=== PATIENT | male | born 1955 | race Caucasian/White ===

== ENCOUNTER 2016-09-29 | Emergency (ER) | payer MEDICAID | END 2016-09-29 17:39 | disposition home or self-care (01) ==

== ENCOUNTER 2017-04-13 10:40 | Outpatient (CLI) | payer MEDICAID ==
[2017-04-13 19:32] LABS: BASOPHILS % (AUTO) 0.8 %; EOSINOPHILS % (AUTO) 0.3 %; HCT - HEMATOCRIT 38.9 % (42.0-52.0); LYMPHOCYTES % (AUTO) 20.9 %; MEAN CORPUSCULAR HEMOGLOBIN 31.7 pg (27.0-31.0); MEAN CORPUSCULAR HGB CONC 33.4 g/dL (32.0-36.0); MEAN PLATELET VOLUME 8.8 fL (7.4-11.4); MONOCYTES # (AUTO) 0.5 10^3/uL (0.0-1.0); MONOCYTES % (AUTO) 10.6 %; NEUTROPHILS # (AUTO) 3.4 10^3/uL (1.5-6.6); NEUTROPHILS % (AUTO) 67.4 %; RED BLOOD COUNT 4.09 10^6/uL (4.70-6.10); RED CELL DISTRIBUTION WIDTH 13.7 % (12.0-15.0)
[2017-04-13 20:02] LABS: ALBUMIN/GLOBULIN RATIO 1.4 (1.0-2.2); BILIRUBIN,TOTAL 0.3 mg/dL (0.2-1.0); BUN - BLOOD UREA NITROGEN 13 mg/dL (6-20); CALCIUM 9.3 mg/dL (8.5-10.3); CARBON DIOXIDE - CO2 25 mmol/L (21-32); CHLORIDE 100 mmol/L (101-111); CHOL/HDL RATIO 1.9 (<5.0); CHOLESTEROL 183 mg/dL; CREATININE 0.7 mg/dL (0.6-1.2); GFR - MDRD 115 (>89); GLUCOSE 101 mg/dL (70-100); HDL CHOLESTEROL 97 mg/dL; LDL/HDL RATIO 0.8 (<3.6); SODIUM 134 mmol/L (135-145); TOTAL PROTEIN 6.8 g/dL (6.7-8.2); TRIGLYCERIDES 46 mg/dL; VLDL CHOLESTEROL 9 mg/dL
== END 2017-04-13 10:41 | disposition home or self-care (01) ==
LOC: LAB.F 10:40
PROVIDERS: ATTEND Nurse Practitioner Family
DX: I10 Essential (primary) hypertension (principal); Z12.5 Encounter for screening for malignant neoplasm of prostate; R58 Hemorrhage, not elsewhere classified
CPT/HCPCS: 36415; 80053; 80061; 84153; 85025

== ENCOUNTER 2017-05-03 19:26 | Emergency (ER) | payer MEDICAID ==
[2017-05-03 19:34] VITALS: BP 115/68
--- NOTE | 2017-05-03 20:11 | ED Physician Documentation ---
History of Present Illness - Stated complaint Stated Complaint: LEFT LEG INJ - Chief complaint Chief Complaint: Ext Problem - History obtained from History obtained from: Patient - History of Present Illness Timing: Other (approximately 2 months) Pain level now: 3 Improved by: rest Worsened by: weight-bearing (intermittently, not consistently) - Additonal information Additional information: c/o approximately 2 months of left ankle pain and intermittent swelling without recollectable injury. Patient describes being quite active on a daily basis. He was evaluated by PMD 1 month ago, xrays were discussed but decision was to wait and see if symptoms resolved with rest. He says he had sudden worsening of pain and swelling 2 days ago during strenuous physical activity. Review of Systems Skin: denies: Rash Musculoskeletal: reports: Extremity pain, Extremity swelling, Pain with weight bearing Neurologic: denies: Focal weakness, Numbness PD PAST MEDICAL HISTORY - Past Medical History Past Medical History: Yes Cardiovascular: Hypertension GI: GERD - Past Surgical History Past Surgical History: Yes General: Colonoscopy - Present Medications Home Medications: Ambulatory Orders Medication Instructions Recorded Confirmed Lisinopril [Zestril] 20 mg PO DAILY 02/11/13 05/03/17 Ranitidine HCl 300 mg PO DAILY 02/11/13 05/03/17 Nortriptyline HCl 25 mg PO DAILY 01/05/15 05/03/17 Alprazolam [Xanax] 0.5 mg ORAL DAILY PRN 04/09/15 05/03/17 - Allergies Allergies/Adverse Reactions: Allergies Allergy/AdvReac Type Severity Reaction Status Date / Time tetracycline [Tetracycline] Allergy Mild Rash Verified 05/03/17 19:34 Sulfa (Sulfonamide Allergy Unknown unknown Verified 05/03/17 19:34 Antibiotics) - Social History Does the pt smoke?: Yes Smoking Status: Light tobacco smoker Does the pt drink ETOH?: Yes Does the pt have substance abuse?: Yes - Immunizations Immunizations are current?: No Immunizations: TDAP >10years/unknown - POLST Patient has POLST: No PD ED PE NORMAL - Vitals Vital signs reviewed: Yes - General General: Alert and oriented X 3, No acute distress, Well developed/nourished - Derm Derm: Normal color, Warm and dry, No rash - Extremities Extremities: No tenderness to palpate, Normal ROM s pain PD ED PE EXPANDED - Extremities Feet visual: 1 - swelling Results - Vitals Vitals: Vital Signs - 24 hr 05/03/17 19:31 Temperature 37.2 C Heart Rate 75 Respiratory 16 Rate Blood Pressure 115/68 O2 Saturation 99 Oxygen O2 Source Room air - Rads (name of study) left ankle xrays Radiology: Prelim report reviewed, See rad report PD MEDICAL DECISION MAKING - ED course Complexity details: reviewed results, re-evaluated patient, considered differential, d/w patient Departure - Departure Disposition: 01 Home, Self Care Clinical Impression: Pain of lower extremity Qualifiers: Laterality: left Qualified Code(s): M79.605 - Pain in left leg Condition: Good Instructions: ED Strain Muscle Ext Follow-Up: Evelyn Coffman, PLSQL DEVELOPER [Primary Care Provider] - (Call to arrange for next available appointment) Discharge Date/Time: 05/03/17 21:10
--- NOTE | 2017-05-03 20:50 | XRAY Preliminary Report ---
Exam: XR Ankle 3 View LT IMPRESSION: Mild soft tissue swelling. No acute fracture or dislocation identified. [facility] SITE ID: [id number]
--- NOTE | 2017-05-03 20:53 | XRAY Report ---
EXAM: LEFT ANKLE RADIOGRAPHY EXAM DATE: 05/03/2017 08:37 PM. CLINICAL HISTORY: Pain, swelling. COMPARISON: None. TECHNIQUE: 3 views. FINDINGS: Bones: No acute fracture or focal osseous destruction identified. Mild chronic calcification along th e interosseous membrane. Joints: Alignment and joint spaces appear maintained. No dislocation. Soft Tissues: No radiopaque foreign body. Soft tissue swelling. IMPRESSION: Mild soft tissue swelling. No acute fracture or dislocation identified. [facility] Referring Provider Line: [phone] SITE ID: [id number]
== END 2017-05-03 21:10 | disposition home or self-care (01) ==
LOC: ED 19:26
DX: M79.605 Pain in left leg (principal); I10 Essential (primary) hypertension; F17.200 Nicotine dependence, unspecified, uncomplicated
CPT/HCPCS: 99282; 99283

== ENCOUNTER 2017-08-18 16:47 | Outpatient (CLI) | payer MEDICAID | END 2017-08-18 16:48 | disposition home or self-care (01) | LOC: RT.S 16:47 | PROVIDERS: ATTEND Nurse Practitioner Family | DX: I49.3 Ventricular premature depolarization (principal) | CPT/HCPCS: 93005 ==

== ENCOUNTER 2017-09-04 09:04 | Outpatient (CLI) | payer MEDICAID | END 2017-09-04 09:05 | disposition home or self-care (01) | LOC: DI 09:04 | PROVIDERS: ATTEND Nurse Practitioner Family | DX: I49.3 Ventricular premature depolarization (principal); I34.0 Nonrheumatic mitral (valve) insufficiency | CPT/HCPCS: 93306 ==

== ENCOUNTER 2017-10-22 13:35 | Outpatient (CLI) | payer MEDICAID ==
[2017-10-22 14:13] LABS: BILIRUBIN,URINE NEGATIVE (NEGATIVE); GLUCOSE, URINE (UA) NEGATIVE (NEGATIVE); KETONES,URINE (UA) NEGATIVE (NEGATIVE); LEUKOCYTE ESTERASE, URINE NEGATIVE (NEGATIVE); NITRITE,URINE NEGATIVE (NEGATIVE); OCCULT BLOOD,URINE NEGATIVE (NEGATIVE); PH,URINE 7.5 PH (5.0-7.5); PROTEIN,URINE NEGATIVE (NEGATIVE); UROBILINOGEN,URINE 0.2 (NORMAL) E.U./dL (NORMAL)
[2017-10-22 14:20] LABS: CLARITY,URINE CLEAR (CLEAR)
[2017-10-22 14:23] LABS: BACTERIA,URINE None Seen /HPF (None Seen); RBC,URINE 0-5 /HPF (0-5); SQUAMOUS EPITHELIAL CELL,UR RARE Squamous (<= Few)
== END 2017-10-22 13:36 | disposition home or self-care (01) ==
LOC: LAB 13:35
PROVIDERS: ATTEND Nurse Practitioner Family
DX: R10.9 Unspecified abdominal pain (principal)
CPT/HCPCS: 81001; 87086

== ENCOUNTER 2017-10-28 13:02 | Outpatient (CLI) | payer MEDICAID ==
[2017-10-28 17:46] LABS: ALBUMIN 4.3 g/dL (3.2-5.5); ALBUMIN/GLOBULIN RATIO 1.5 (1.0-2.2); BILIRUBIN,TOTAL 0.8 mg/dL (0.2-1.0); CALCIUM 9.3 mg/dL (8.5-10.3); CREATININE 0.7 mg/dL (0.6-1.2); TOTAL PROTEIN 7.1 g/dL (6.7-8.2)
== END 2017-10-28 13:03 | disposition home or self-care (01) ==
LOC: LAB.F 13:02
PROVIDERS: ATTEND Nurse Practitioner Family
DX: R10.9 Unspecified abdominal pain (principal)
CPT/HCPCS: 36415; 80053; 82150; 83690

== ENCOUNTER 2017-11-22 07:38 | Outpatient (CLI) | payer MEDICAID ==
[2017-11-22 10:57] LABS: HB2 TOTAL 14.4 g/dL; HEMOGLOBIN A1C 0.48 g/dL; HEMOGLOBIN A1C % 5.2 % (4.6-6.2)
== END 2017-11-22 07:39 | disposition home or self-care (01) ==
LOC: LAB.F 07:38
PROVIDERS: ATTEND Nurse Practitioner Family
DX: R73.01 Impaired fasting glucose (principal)
CPT/HCPCS: 36415; 83036

== ENCOUNTER 2017-11-24 08:44 | Emergency (ER) | payer MEDICAID ==
[2017-11-24] MEDS ORDERED: ACETAMINOPHEN 1,000 MG/100 ML 100 ML IV STA (09:03)
--- NOTE | 2017-11-24 09:06 | ED Physician Documentation ---
History of Present Illness - Stated complaint Stated Complaint: FELL FROM ROOF - Additonal information Additional information: hx from pt 62 m helping a friend with tomasz project slipped on metal double pitched roof in the rain and slid all the way from the highest point off the edge flying approx 8 ft out past gutters and landed in mud on his read end no LOC denies head injiury and MARQUEZ denies neck pain denies chest pain had pain to pelvis low back and region no NV no blood in BM or urine no numbness or weakness took alleve last night s relief Review of Systems Constitutional: denies: Fever Ears: denies: Drainage/discharge Nose: denies: Epistaxis Cardiac: denies: Chest pain / pressure GI: reports: Abdominal Pain. denies: Nausea, Vomiting, Hematemesis, Bloody / black stool : denies: Hematuria Musculoskeletal: reports: Back pain. denies: Neck pain Neurologic: denies: Generalized weakness, Focal weakness, Numbness, Headache, Head injury Endocrine: denies: Easy bruising / bleeding Immunocompromised: denies: Immunocompromised PD PAST MEDICAL HISTORY - Past Medical History Cardiovascular: Hypertension GI: GERD - Past Surgical History Past Surgical History: Yes General: Colonoscopy - Present Medications Home Medications: Ambulatory Orders Medication Instructions Recorded Confirmed Lisinopril [Zestril] 20 mg PO DAILY 02/11/13 10/25/17 raNITIdine HCl [Ranitidine HCl] 300 mg PO DAILY 02/11/13 10/25/17 Nortriptyline HCl 25 mg PO DAILY 01/05/15 10/25/17 Alprazolam [Xanax] 0.5 mg ORAL DAILY PRN 04/09/15 10/25/17 - Allergies Allergies/Adverse Reactions: Allergies Allergy/AdvReac Type Severity Reaction Status Date / Time tetracycline [Tetracycline] Allergy Mild Rash Verified 05/03/17 19:34 Sulfa (Sulfonamide Allergy Unknown unknown Verified 05/03/17 19:34 Antibiotics) - Social History Does the pt smoke?: Yes Smoking Status: Light tobacco smoker Does the pt drink ETOH?: Yes Does the pt have substance abuse?: Yes - Immunizations Immunizations are current?: No Immunizations: TDAP >10years/unknown - POLST Patient has POLST: No PD ED PE NORMAL - Vitals Vital signs reviewed: Yes - General General: Alert and oriented X 3 - HEENT HEENT: Atraumatic, PERRL - Neck Neck: Supple, no meningeal sign, No bony TTP - Cardiac Cardiac: RRR - Respiratory Respiratory: No respiratory distress, Clear bilaterally, Other (no chest wall TTP) - Abdomen Abdomen: Other (non distended, no brusing, TTP lower abd with rigidity) - Male Male : Scourer present (tech Susanne - no blood, no ecchymosis, no swelling) - Back Back: Other (non focal low back TTP) - Derm Derm: Normal color - Extremities Extremities: No tenderness to palpate, Normal ROM s pain - Neuro Neuro: Alert and oriented X 3, nocturnist 2-12 intact, No motor deficit, No sensory deficit, Normal speech Eye Opening: Spontaneous Motor: Obeys Commands Verbal: Oriented GCS Score: 15 Results - Vitals Vitals: Vital Signs - 24 hr 11/24/17 11/24/17 08:58 12:04 Temperature 37.2 C Heart Rate 81 82 Respiratory 16 20 Rate Blood Pressure 142/91 H 167/88 H O2 Saturation 100 100 Oxygen O2 Source Room air - Labs Labs: Laboratory Tests 11/24/17 11/24/17 11/24/17 09:13 09:13 10:57 WBC 7.7 RBC 3.90 L Hgb 12.5 L Hct 36.7 L MCV 94.2 H MCH 32.2 H MCHC 34.2 RDW 14.4 Plt Count 181 MPV 7.5 Neut # 5.4 Lymph # 1.1 L [place] # 1.2 H Eos # 0.1 Baso # 0.0 Absolute Nucleated RBC 0.00 Nucleated RBC % 0.0 Sodium 136 Potassium 3.9 Chloride 103 Carbon Dioxide 25 Anion Gap 8.0 BUN 21 H Creatinine 0.6 Estimated GFR (MDRD) 137 Glucose 114 H Calcium 8.8 Total Bilirubin 0.9 AST 29 ALT 18 Alkaline Phosphatase 42 Total Protein 7.0 Albumin 4.4 Globulin 2.6 Albumin/Globulin Ratio 1.7 Lipase 28 Urine Color YELLOW Urine Clarity CLEAR Urine pH 5.5 Ur Specific [place] <=1.005 Urine Protein NEGATIVE Urine Glucose (UA) NEGATIVE Urine Ketones TRACE Urine Occult Blood NEGATIVE Urine Nitrite NEGATIVE Urine Bilirubin NEGATIVE Urine Urobilinogen 0.2 (NORMAL) Ur Leukocyte Esterase NEGATIVE Ur Microscopic Review NOT INDICATED Urine Culture Comments NOT INDICATED - Rads (name of study) CT angio abd pelvis Radiology: See rad report (old pelvic fx unchanged from prior imaging (and c/w pt known prior injuries) L sided pelvic hematoma 3 X 7.5 X 8.5 cm with no apparent acute extravasation on angio and no large vessel aneurysm or dissection , bladder is thick walled and there is surrounding fluid and air sugegsting a bladder injury rec further eval) L spine CT Radiology: See rad report ( no fx) Departure - Departure Disposition: 02 Transfer Acute Care Hosp Clinical Impression: Pelvic hematoma Fall from roof Qualifiers: Encounter type: initial encounter Qualified Code(s): W13.2XXA - Fall from, out of or through roof, initial encounter Bladder injury Qualifiers: Encounter type: initial encounter Qualified Code(s): S37.20XA - Unspecified injury of bladder, initial encounter Condition: Fair Discharge Date/Time: 11/24/17 12:31
[2017-11-24 09:19] LABS: BASOPHILS % (AUTO) 0.3 %; EOSINOPHILS # (AUTO) 0.1 10^3/uL (0.0-0.7); EOSINOPHILS % (AUTO) 0.7 %; HGB - HEMOGLOBIN 12.5 g/dL (14.0-18.0); LYMPHOCYTES # (AUTO) 1.1 10^3/uL (1.5-3.5); LYMPHOCYTES % (AUTO) 13.8 %; MEAN CORPUSCULAR HEMOGLOBIN 32.2 pg (27.0-31.0); MEAN CORPUSCULAR HGB CONC 34.2 g/dL (32.0-36.0); MEAN CORPUSCULAR VOLUME 94.2 fL (80.0-94.0); MEAN PLATELET VOLUME 7.5 fL (7.4-11.4); MONOCYTES # (AUTO) 1.2 10^3/uL (0.0-1.0); MONOCYTES % (AUTO) 15.4 %; NEUTROPHILS # (AUTO) 5.4 10^3/uL (1.5-6.6); NEUTROPHILS % (AUTO) 69.8 %; PLT - PLATELET COUNT 181 10^3/uL (130-450); RED CELL DISTRIBUTION WIDTH 14.4 % (12.0-15.0); WHITE BLOOD COUNT 7.7 x10^3/uL (4.8-10.8)
[2017-11-24] MEDS ORDERED: IOPAMIDOL-300 100 ML VIAL ONE (09:29)
[2017-11-24 09:31] LABS: ALBUMIN 4.4 g/dL (3.2-5.5); ALBUMIN/GLOBULIN RATIO 1.7 (1.0-2.2); BILIRUBIN,TOTAL 0.9 mg/dL (0.2-1.0); CALCIUM 8.8 mg/dL (8.5-10.3); CREATININE 0.6 mg/dL (0.6-1.2)
[2017-11-24] MEDS ORDERED: IOPAMIDOL-300 100 ML VIAL IVP ONE (09:45)
--- NOTE | 2017-11-24 10:35 | CT Report ---
EXAM: CT ANGIOGRAM ABDOMEN AND PELVIS WITH CONTRAST EXAM DATE: 11/24/2017 09:48 AM. CLINICAL HISTORY: Fall from roof, pain COMPARISONS: None. TECHNIQUE: Routine helical CT angiogram imaging was performed through the abdomen and pelvis in the a rterial phase. IV contrast: 100ML ISOVUE 300. Enteric contrast: No. Reconstructions: Coronal, sagitta l, and 3D MIP reconstructions. In accordance with CT protocol optimization, one or more of the following dose reduction techniques w ere utilized for this exam: automated exposure control, adjustment of mA and/or KV based on patient s ize, or use of iterative reconstructive technique. FINDINGS: Vasculature: No aneurysm or dissection. No contrast extravasation. Mild atherosclerotic disease of th e abdominal aorta and iliac arteries. The visualized mesenteric and solid organ vascular structures a re also within normal limits. Lung Bases: Small amount of dependent atelectasis. Abdominal Solid Organs: The liver, spleen, pancreas, adrenal glands, gallbladder and kidneys appear u nremarkable. No evidence of acute traumatic visceral injury. A few small indeterminate hypoattenuatin g liver lesions again noted within the liver. Peritoneal Cavity: No bowel obstruction. Small amount of inflammation and trace fluid within the pelv is. Tiny flecks of air appears to be present adjacent to the urinary bladder (image 169 and 176, seri es 4). No bulky adenopathy. Left-sided pelvic moderately dense collection measures approximately 3.4 x 8.4 x 7.5 cm (image 166, series 4). Pelvic Organs: Urinary bladder appears mildly thick-walled, although underdistended and limited in as sessment. A few prostate calcifications again noted. Bones: Dystrophic calcifications again noted adjacent to the pubic bone anteriorly, primarily right-s ided. These appear unchanged. The remainder of the bony pelvis also appears stable with no acute frac ture or dislocation identified. Mildly progressive degenerative changes again noted in the spine. Mil d anterolisthesis of L4 on L5 again noted. Multilevel facet arthropathy. Other: None. IMPRESSION: 1. Small amount of inflammation and trace free fluid within the pelvis. Additionally, there is a tiny margot of air adjacent to the anterior aspect of the urinary bladder and also more inferiorly a secon d small margot of free air. The urinary bladder is otherwise not well assessed secondary to incomplete distention, but appears that it may be mildly thick-walled. Recommend further evaluation of the urin shane bladder for possible injury. 2. Ovoid left-sided pelvic moderately dense collection measuring approximately 3.4 x 8.4 x 7.5 cm. In the setting of acute trauma, this likely represents a hematoma. No active arterial contrast extravas ation identified. 3. Old pelvic fracture deformities are present, including multiple fragments anterior to the pubic belinda cintia, primarily right-sided. These were visualized on the prior study. No new fracture is identified. Worsening degenerative changes within the spine. Findings discussed with Dr. Smallwood at approximately 10:25 AM on 11/24/2017. [facility] Referring Provider Line: [phone] SITE ID: [id number]
--- NOTE | 2017-11-24 10:40 | CT Preliminary Report ---
Exam: CT LUMBAR SPINE W/O IMPRESSION: 1. No acute lumbar spine fracture. 2. Increased degenerative disk disease and facet arthropathy within the visualized spine since the pr ior study, including mild grade 1 retrolisthesis of L1 on L2 and anterolisthesis of L4 on L5. [facility] SITE ID: [id number]
--- NOTE | 2017-11-24 10:40 | CT Report ---
EXAM: CT LUMBAR SPINE WITHOUT CONTRAST EXAM DATE: 11/24/2017 09:34 AM. CLINICAL HISTORY: Fall from roof, pain COMPARISONS: CT abdomen pelvis 04/09/2015. TECHNIQUE: Thin-section axial images were acquired of the lumbar spine from T12 to S1 without contras t. Post-processing: Coronal and sagittal reformats. Other: None. In accordance with CT protocol optimization, one or more of the following dose reduction techniques w ere utilized for this exam: automated exposure control, adjustment of mA and/or KV based on patient s ize, or use of iterative reconstructive technique. FINDINGS: Alignment: Mild grade 1 retrolisthesis of L1 on L2 again noted. Mild grade 1 anterolisthesis of L4 on L5 again noted. Multilevel degenerative change, most notably at the visualized lower thoracic spine, and L5-S1 where there is loss of disk space, endplate sclerosis, and osteophytes. Multilevel facet a rthropathy again noted throughout the lumbar spine, most prominent at the lower lumbar spine.. Bones: Vertebral body heights appear stable. No acute fracture. Disk Levels/Facets: Multilevel degenerative change, most notably at the visualized lower thoracic spine and L5-S1 where t here is loss of disk space, endplate sclerosis, and osteophytes. Multilevel facet arthropathy again n oted throughout the lumbar spine, most prominent at the lower lumbar spine. Musculature: No fatty atrophy. Other: The visualized retroperitoneum is unremarkable. IMPRESSION: 1. No acute lumbar spine fracture. 2. Increased degenerative disk disease and facet arthropathy within the visualized spine since the pr ior study, including mild grade 1 retrolisthesis of L1 on L2 and anterolisthesis of L4 on L5. [facility] Referring Provider Line: [phone] SITE ID: [id number]
[2017-11-24 11:06] LABS: BILIRUBIN,URINE NEGATIVE (NEGATIVE); GLUCOSE, URINE (UA) NEGATIVE (NEGATIVE); KETONES,URINE (UA) TRACE mg/dL (NEGATIVE); LEUKOCYTE ESTERASE, URINE NEGATIVE (NEGATIVE); NITRITE,URINE NEGATIVE (NEGATIVE); OCCULT BLOOD,URINE NEGATIVE (NEGATIVE); PH,URINE 5.5 PH (5.0-7.5); PROTEIN,URINE NEGATIVE (NEGATIVE); UROBILINOGEN,URINE 0.2 (NORMAL) E.U./dL (NORMAL)
[2017-11-24 11:07] LABS: CLARITY,URINE CLEAR (CLEAR)
[2017-11-24] MEDS ORDERED: MORPHINE 2 MG/ML SYRINGE IVP STA (11:39)
[2017-11-24] MEDS ORDERED: LIDOCAINE 2% URO-JET 5 ML SYRINGE UR STA (11:39)
[2017-11-24 12:05] VITALS: BP 167/88
[2017-11-24] MEDS ORDERED: LORazepam 2 MG/ML VIAL IVP STA (12:12)
== END 2017-11-24 12:31 | disposition short-term general hospital (02) ==
LOC: ED 08:44
DX: S30.0XXA Contusion of lower back and pelvis, initial encounter (principal); S37.20XA Unspecified injury of bladder, initial encounter; W13.2XXA Fall from, out of or through roof, initial encounter; I10 Essential (primary) hypertension; K21.9 Gastro-esophageal reflux disease without esophagitis; F17.200 Nicotine dependence, unspecified, uncomplicated
CPT/HCPCS: 36415; 51702; 72131; 74174; 80053; 81003; 83690; 85025; 96365; 96375; 99284; J0131; J2060; J2270; Q9967; 81001; 87086

== ENCOUNTER 2017-11-24 12:21 | Outpatient (CLI) | payer MEDICAID | END 2017-11-24 12:22 | disposition short-term general hospital (02) | LOC: EMS 12:21 | PROVIDERS: ATTEND Surgery | DX: S37.20XA Unspecified injury of bladder, initial encounter (principal); S30.0XXA Contusion of lower back and pelvis, initial encounter; W17.89XA Other fall from one level to another, initial encounter | CPT/HCPCS: A0425; A0426 ==

== ENCOUNTER 2017-11-28 11:08 | Emergency (ER) | payer MEDICAID ==
[2017-11-28 11:16] VITALS: BP 165/85
[2017-11-28 12:22] LABS: BILIRUBIN,URINE NEGATIVE (NEGATIVE); GLUCOSE, URINE (UA) NEGATIVE (NEGATIVE); KETONES,URINE (UA) NEGATIVE (NEGATIVE); LEUKOCYTE ESTERASE, URINE NEGATIVE (NEGATIVE); NITRITE,URINE NEGATIVE (NEGATIVE); OCCULT BLOOD,URINE NEGATIVE (NEGATIVE); PROTEIN,URINE NEGATIVE (NEGATIVE); UROBILINOGEN,URINE 0.2 (NORMAL) E.U./dL (NORMAL)
[2017-11-28 12:23] LABS: CLARITY,URINE CLEAR (CLEAR)
[2017-11-28 12:25] LABS: BASOPHILS % (AUTO) 0.5 %; EOSINOPHILS % (AUTO) 0.5 %; HGB - HEMOGLOBIN 12.4 g/dL (14.0-18.0); LYMPHOCYTES # (AUTO) 1.1 10^3/uL (1.5-3.5); MEAN CORPUSCULAR HGB CONC 33.7 g/dL (32.0-36.0); MEAN CORPUSCULAR VOLUME 94.9 fL (80.0-94.0); MEAN PLATELET VOLUME 8.4 fL (7.4-11.4); MONOCYTES # (AUTO) 0.7 10^3/uL (0.0-1.0); MONOCYTES % (AUTO) 10.7 %; NEUTROPHILS % (AUTO) 72.3 %; PLT - PLATELET COUNT 213 10^3/uL (130-450); RED BLOOD COUNT 3.89 10^6/uL (4.70-6.10); RED CELL DISTRIBUTION WIDTH 13.7 % (12.0-15.0); WHITE BLOOD COUNT 6.9 x10^3/uL (4.8-10.8)
[2017-11-28 12:39] LABS: ALBUMIN 4.4 g/dL (3.2-5.5); ALBUMIN/GLOBULIN RATIO 1.5 (1.0-2.2); BILIRUBIN,TOTAL 0.5 mg/dL (0.2-1.0); CALCIUM 9.2 mg/dL (8.5-10.3); CREATININE 0.8 mg/dL (0.6-1.2); TOTAL PROTEIN 7.4 g/dL (6.7-8.2)
[2017-11-28] MEDS ORDERED: HYDROcod/ACETAM 5/325 MG TABLET PO STA (12:42)
--- NOTE | 2017-11-28 12:44 | ED Physician Documentation ---
History of Present Illness - Stated complaint Stated Complaint: LOW ABD PX - Chief complaint Chief Complaint: Abd Pain - History obtained from History obtained from: Patient, Family - History of Present Illness Timing: How many days ago (4) Pain level max: 7 Pain level now: 4 Improved by: continued movement throughout the day. Worsened by: movement, waking up in the am - Additonal information Additional information: Patient is a 62-year-old male who presents to the emergency department complaining of pain since falling off of a roof approximately 4 days ago. Was sent down to [facility] per possible intra-pelvic bleeding as well as bladder injury. States he had several CAT scans in the emergency department there and was seen by multiple people and sent home. States since that time he feels very sore in the morning, better after he is up and moving around for a while. Is taking Advil and Tylenol at home. No fevers. No syncope. No lightheadedness. Review of Systems Constitutional: denies: Fever, Chills GI: denies: Vomiting : denies: Dysuria, Frequency, Hesitancy, Hematuria Skin: denies: Rash Musculoskeletal: denies: Neck pain, Back pain Neurologic: denies: Headache PD PAST MEDICAL HISTORY - Past Medical History Cardiovascular: Hypertension GI: GERD - Past Surgical History Past Surgical History: Yes General: Colonoscopy - Present Medications Home Medications: Ambulatory Orders Medication Instructions Recorded Confirmed Lisinopril [Zestril] 20 mg PO DAILY 02/11/13 10/25/17 raNITIdine HCl [Ranitidine HCl] 300 mg PO DAILY 02/11/13 10/25/17 Nortriptyline HCl 25 mg PO DAILY 01/05/15 10/25/17 Alprazolam [Xanax] 0.5 mg ORAL DAILY PRN 04/09/15 10/25/17 Hydrocodone/Acetaminophen 1 - 2 each PO Q6H PRN #14 tablet 11/28/17 [Hydrocodon-Acetaminophen 5-325] - Allergies Allergies/Adverse Reactions: Allergies Allergy/AdvReac Type Severity Reaction Status Date / Time tetracycline [Tetracycline] Allergy Mild Rash Verified 05/03/17 19:34 Sulfa (Sulfonamide Allergy Unknown unknown Verified 05/03/17 19:34 Antibiotics) - Social History Does the pt smoke?: Yes Smoking Status: Current every day smoker Does the pt drink ETOH?: Yes Does the pt have substance abuse?: Yes - Immunizations Immunizations are current?: No Immunizations: TDAP >10years/unknown - POLST Patient has POLST: No PD ED PE NORMAL - Vitals Vital signs reviewed: Yes - General General: Alert and oriented X 3, No acute distress - HEENT HEENT: Moist mucous membranes - Neck Neck: Supple, no meningeal sign - Cardiac Cardiac: RRR, Strong equal pulses - Respiratory Respiratory: No respiratory distress, Clear bilaterally - Abdomen Abdomen: Soft, Non tender, Non distended - Male Male : Other (normal external exam.) - Back Back: No CVA TTP, No spinal TTP - Derm Derm: Warm and dry, No rash - Neuro Neuro: Alert and oriented X 3 - Psych Psych: Normal mood, Normal affect Results - Vitals Vitals: Vital Signs - 24 hr 11/28/17 11:11 Temperature 36.6 C Heart Rate 77 Respiratory 18 Rate Blood Pressure 165/85 H O2 Saturation 99 Oxygen O2 Source Room air - Labs Labs: Laboratory Tests 11/28/17 11/28/17 11/28/17 12:00 12:13 12:13 WBC 6.9 RBC 3.89 L Hgb 12.4 L Hct 36.9 L MCV 94.9 H MCH 32.0 H MCHC 33.7 RDW 13.7 Plt Count 213 MPV 8.4 Neut # 5.0 Lymph # 1.1 L [place] # 0.7 Eos # 0.0 Baso # 0.0 Absolute Nucleated RBC 0.00 Nucleated RBC % 0.0 Sodium 135 Potassium 4.8 Chloride 100 L Carbon Dioxide 27 Anion Gap 8.0 BUN 22 H Creatinine 0.8 Estimated GFR (MDRD) 98 Glucose 96 Calcium 9.2 Total Bilirubin 0.5 AST 22 ALT 17 Alkaline Phosphatase 48 Total Protein 7.4 Albumin 4.4 Globulin 3.0 Albumin/Globulin Ratio 1.5 Lipase 64 H Urine Color YELLOW Urine Clarity CLEAR Urine pH 6.0 Ur Specific [place] <=1.005 Urine Protein NEGATIVE Urine Glucose (UA) NEGATIVE Urine Ketones NEGATIVE Urine Occult Blood NEGATIVE Urine Nitrite NEGATIVE Urine Bilirubin NEGATIVE Urine Urobilinogen 0.2 (NORMAL) Ur Leukocyte Esterase NEGATIVE Ur Microscopic Review NOT INDICATED Urine Culture Comments NOT INDICATED PD MEDICAL DECISION MAKING - ED course Complexity details: reviewed old records, reviewed results, re-evaluated patient , considered differential, d/w patient, d/w family ED course: Patient is a 62-year-old gentleman who presents to the emergency department with continued low back/pelvic pain after a follow-up of a roof 4 days ago. Worse in the morning, better as he gets up and moves around throughout the day. Appears musculoskeletal on exam. I reviewed his prior CT scans and records from his prior ED visit. I also discussed with the [facility] his records there and those were reviewed over the phone. His abdomen is soft, nontender nondistended here. Hemoglobin and hematocrit are stable. Normal vital signs. Doubt he has continued bleeding. His pain is greatly improved with a small amount of pain medication. Suspect that this is likely musculoskeletal pain from the fall itself. We did discuss a repeat CT scan but patient does not want this at this time. Girlfiriend is comfortable monitoring him at home. Patient counseled regarding signs and symptoms for which I believe and urgent re-evaluation would be necessary. Patient with good understanding of and agreement to plan and is comfortable going home at this time This document was made in part using voice recognition software. While efforts are made to proofread this document, sound alike and grammatical errors may occur. Departure - Departure Disposition: 01 Home, Self Care Clinical Impression: Abdominal wall strain Qualifiers: Encounter type: initial encounter Qualified Code(s): S39.011A - Strain of muscle, fascia and tendon of abdomen, initial encounter Condition: Good Instructions: ED Strain Abdominal Muscle Follow-Up: Evelyn Coffman ARNP [Primary Care Provider] - Within 1 week Prescriptions: Hydrocodone/Acetaminophen [Hydrocodon-Acetaminophen 5-325] 1 - 2 each PO Q6H PRN #14 tablet PRN Reason: pain Comments: This should improve over the next few days. Return if you worsen. Do not drink alcohol or drive while on narcotic pain medicine. Note that many narcotic pain relievers also contain tylenol/acetaminophen. Please ensure that your total dose of acetaminophen from all sources does not exceed 3 grams (3000mg) per day. You may constipated on this medication, take a stool softener such as "Colace" twice a day while you are on it. Also recommend a pgot-aud-adbimee laxative such as senna or MiraLAX any day that you do not have a bowel movement. If you received narcotic pain medication in the emergency department, do not drive or operate machinery for the next 24 hours. Discharge Date/Time: 11/28/17 13:15
== END 2017-11-28 13:15 | disposition home or self-care (01) ==
LOC: ED 11:08
DX: S39.011A Strain of muscle, fascia and tendon of abdomen, initial encounter (principal); W13.2XXA Fall from, out of or through roof, initial encounter; I10 Essential (primary) hypertension; K21.9 Gastro-esophageal reflux disease without esophagitis; F17.200 Nicotine dependence, unspecified, uncomplicated
CPT/HCPCS: 36415; 80053; 81003; 83690; 85025; 99283; A9270; 81001; 87086

== ENCOUNTER 2018-01-20 07:35 | Outpatient (CLI) | payer MEDICAID ==
[2018-01-20 11:31] LABS: HB2 TOTAL 15.8 g/dL; HEMOGLOBIN A1C 0.48 g/dL; HEMOGLOBIN A1C % 4.9 % (4.6-6.2)
== END 2018-01-20 07:36 | disposition home or self-care (01) ==
LOC: LAB.F 07:35
PROVIDERS: ATTEND Nurse Practitioner Family
DX: R73.9 Hyperglycemia, unspecified (principal)
CPT/HCPCS: 36415; 83036

== ENCOUNTER 2018-12-05 11:56 | Emergency (ER) | payer MEDICAID ==
[2018-12-05 12:52] LABS: BASOPHILS % (AUTO) 0.6 %; EOSINOPHILS % (AUTO) 0.2 %; HGB - HEMOGLOBIN 12.8 g/dL (14.0-18.0); LYMPHOCYTES # (AUTO) 1.1 10^3/uL (1.5-3.5); LYMPHOCYTES % (AUTO) 18.5 %; MEAN CORPUSCULAR HEMOGLOBIN 31.9 pg (27.0-31.0); MEAN CORPUSCULAR HGB CONC 33.7 g/dL (32.0-36.0); MEAN CORPUSCULAR VOLUME 94.7 fL (80.0-94.0); MEAN PLATELET VOLUME 7.7 fL (7.4-11.4); MONOCYTES # (AUTO) 0.6 10^3/uL (0.0-1.0); MONOCYTES % (AUTO) 11.2 %; NEUTROPHILS % (AUTO) 69.5 %; PLT - PLATELET COUNT 253 10^3/uL (130-450); RED BLOOD COUNT 4.01 10^6/uL (4.70-6.10); RED CELL DISTRIBUTION WIDTH 14.2 % (12.0-15.0); WHITE BLOOD COUNT 5.8 x10^3/uL (4.8-10.8)
[2018-12-05 13:06] LABS: ALBUMIN 4.3 g/dL (3.2-5.5); ALBUMIN/GLOBULIN RATIO 1.4 (1.0-2.2); BILIRUBIN,TOTAL 0.5 mg/dL (0.2-1.0); CALCIUM 9.2 mg/dL (8.5-10.3); CREATININE 0.8 mg/dL (0.6-1.2); TOTAL PROTEIN 7.3 g/dL (6.7-8.2)
--- NOTE | 2018-12-05 14:00 | ED Physician Documentation ---
PD HPI ABD PAIN - Stated complaint Stated Complaint: LOWER ABD PAIN - Chief complaint Chief Complaint: Abd Pain - History obtained from History obtained from: Patient - History of Present Illness Timing - onset: How many days ago (2-3) Timing - duration: Days Timing - details: Gradual onset, Waxing and waning Quality: Cramping, Aching, Pain Location: Periumbilical, Other (lower abd) Radiation: No: Chest, Lower back Improved by: BM. No: Eating Worsened by: Position. No: Eating, Palpation Associated symptoms: Nausea, Constipation. No: Fever, Vomiting, Diarrhea, Melena, Hematochezia Similar symptoms before: No diagnosis (has had CT scans, endoscopies without specific Dx.) Recently seen: Emergency Dept Review of Systems Constitutional: denies: Fever, Chills, Myalgias Nose: denies: Rhinorrhea / runny nose, Congestion Throat: denies: Sore throat Respiratory: denies: Cough GI: reports: Abdominal Pain, Constipation. denies: Vomiting, Diarrhea, Hematemesis, Bloody / black stool : denies: Dysuria, Frequency Skin: denies: Rash, Lesions Musculoskeletal: denies: Back pain Neurologic: reports: Generalized weakness. denies: Focal weakness, Numbness, Near syncope PD PAST MEDICAL HISTORY - Past Medical History Cardiovascular: Hypertension GI: GERD - Past Surgical History Past Surgical History: Yes General: Colonoscopy - Present Medications Home Medications: Ambulatory Orders Medication Instructions Recorded Confirmed Lisinopril [Zestril] 30 mg PO DAILY 02/11/13 07/25/18 RX: raNITIdine HCl [Ranitidine HCl] 300 mg PO DAILY 02/11/13 07/25/18 Alprazolam [Xanax] 0.5 mg ORAL DAILY PRN 04/09/15 07/25/18 RX: Nortriptyline HCl 100 mg PO DAILY 07/25/18 07/25/18 Dicyclomine [Bentyl] 10 mg PO BID PRN #30 capsule 12/05/18 Polyethylene Glycol 3350 [Miralax] 17 gm PO DAILY PRN #1 bottle 12/05/18 RX: Naproxen 500 mg PO QPM #20 tablet 12/05/18 - Allergies Allergies/Adverse Reactions: Allergies Allergy/AdvReac Type Severity Reaction Status Date / Time tetracycline [Tetracycline] Allergy Mild Rash Verified 07/25/18 13:15 Sulfa (Sulfonamide Allergy Unknown unknown Verified 07/25/18 13:15 Antibiotics) - Social History Does the pt smoke?: Yes Smoking Status: Current every day smoker Does the pt drink ETOH?: Yes Does the pt have substance abuse?: Yes - Immunizations Immunizations are current?: No Immunizations: TDAP >10years/unknown - POLST Patient has POLST: No PD ED PE NORMAL - Vitals Vital signs reviewed: Yes - General General: Alert and oriented X 3, No acute distress, Well developed/nourished - HEENT HEENT: Atraumatic, PERRL, Pharynx benign - Neck Neck: Supple, no meningeal sign, No adenopathy - Cardiac Cardiac: RRR, No murmur - Respiratory Respiratory: No respiratory distress, Clear bilaterally - Abdomen Abdomen: Normal bowel sounds, Soft, Non distended, No organomegaly, Other (tender mid to lower abd without percussion, rebound, nor guarding. ) - Male Male : Deferred - Rectal Rectal: Deferred - Back Back: No CVA TTP - Derm Derm: Normal color, Warm and dry - Extremities Extremities: Normal ROM s pain, No edema, No calf tenderness / cord - Neuro Neuro: Alert and oriented X 3, No motor deficit, Normal speech Results - Vitals Vitals: Vital Signs - 24 hr 12/05/18 12/05/18 12/05/18 12:11 14:38 15:41 Temperature 36.7 C Heart Rate 85 87 77 Respiratory 18 18 16 Rate Blood Pressure 162/76 H 162/86 H 170/82 H O2 Saturation 99 99 95 Oxygen O2 Source Room air - Labs Labs: Laboratory Tests 12/05/18 12/05/18 12/05/18 12:42 12:42 14:20 WBC 5.8 RBC 4.01 L Hgb 12.8 L Hct 38.0 L MCV 94.7 H MCH 31.9 H MCHC 33.7 RDW 14.2 Plt Count 253 MPV 7.7 Neut # (Auto) 4.0 Lymph # (Auto) 1.1 L [place] # (Auto) 0.6 Eos # (Auto) 0.0 Baso # (Auto) 0.0 Absolute Nucleated RBC 0.00 Nucleated RBC % 0.0 Sodium 136 Potassium 3.8 Chloride 99 L Carbon Dioxide 26 Anion Gap 11.0 BUN 19 Creatinine 0.8 Estimated GFR (MDRD) 98 Glucose 88 Calcium 9.2 Total Bilirubin 0.5 AST 34 ALT 25 Alkaline Phosphatase 40 L Total Protein 7.3 Albumin 4.3 Globulin 3.0 Albumin/Globulin Ratio 1.4 Lipase 39 Urine Color YELLOW Urine Clarity CLEAR Urine pH 6.5 Ur Specific [place] <=1.005 Urine Protein NEGATIVE Urine Glucose (UA) NEGATIVE Urine Ketones TRACE Urine Occult Blood NEGATIVE Urine Nitrite NEGATIVE Urine Bilirubin NEGATIVE Urine Urobilinogen 0.2 (NORMAL) Ur Leukocyte Esterase NEGATIVE Ur Microscopic Review NOT INDICATED Urine Culture Comments NOT INDICATED PD MEDICAL DECISION MAKING - ED course Complexity details: considered differential (he has had prior CTs recently and lower endoscopy 5-6 months ago. Abd exam is not acute abd. We shared discussion for meds and labs without imaging. ), d/w patient Departure - Departure Disposition: Home, Self Care Clinical Impression: Abdominal pain Qualifiers: Abdominal location: lower abdomen, unspecified Qualified Code(s): R10.30 - Low er abdominal pain, unspecified Condition: Stable Record reviewed to determine appropriate education?: Yes Instructions: ED Abdominal Pain Unkn Cause Prescriptions: Dicyclomine [Bentyl] 10 mg PO BID PRN #30 capsule PRN Reason: Abdominal Pain RX: Naproxen 500 mg PO QPM #20 tablet Polyethylene Glycol 3350 [Miralax] 17 gm PO DAILY PRN #1 bottle PRN Reason: Constipation Comments: Stay well-hydrated. Continue your daily fiber use. Add MiraLAX mild stool softener daily. Also naproxen anti-inflammatory nightly. To that add dicyclomine intestinal antispasmodic as needed for cramps. Recheck if not improved well over the next week or so. Follow-up with your primary care regarding this combination and see if it is helping or not or other treatments to try. Discharge Date/Time: 12/05/18 15:43
[2018-12-05 14:40] LABS: BILIRUBIN,URINE NEGATIVE (NEGATIVE); GLUCOSE, URINE (UA) NEGATIVE (NEGATIVE); KETONES,URINE (UA) TRACE mg/dL (NEGATIVE); LEUKOCYTE ESTERASE, URINE NEGATIVE (NEGATIVE); NITRITE,URINE NEGATIVE (NEGATIVE); OCCULT BLOOD,URINE NEGATIVE (NEGATIVE); PH,URINE 6.5 PH (5.0-7.5); PROTEIN,URINE NEGATIVE (NEGATIVE); UROBILINOGEN,URINE 0.2 (NORMAL) E.U./dL (NORMAL)
[2018-12-05 14:42] LABS: CLARITY,URINE CLEAR (CLEAR)
[2018-12-05 15:43] VITALS: BP 170/82
== END 2018-12-05 15:43 | disposition home or self-care (01) ==
LOC: ED 11:56
DX: R10.33 Periumbilical pain (principal); R11.0 Nausea; K59.00 Constipation, unspecified; K21.9 Gastro-esophageal reflux disease without esophagitis; I10 Essential (primary) hypertension; F17.200 Nicotine dependence, unspecified, uncomplicated
CPT/HCPCS: 36415; 80053; 81001; 81003; 83690; 85025; 87086; 99282; 99283

== ENCOUNTER 2018-12-19 07:20 | Outpatient (CLI) | payer MEDICAID ==
[2018-12-19 10:44] LABS: BASOPHILS % (AUTO) 0.6 %; EOSINOPHILS # (AUTO) 0.1 10^3/uL (0.0-0.7); EOSINOPHILS % (AUTO) 2.4 %; HGB - HEMOGLOBIN 13.3 g/dL (14.0-18.0); LYMPHOCYTES % (AUTO) 23.1 %; MEAN CORPUSCULAR HEMOGLOBIN 32.1 pg (27.0-31.0); MEAN CORPUSCULAR HGB CONC 33.5 g/dL (32.0-36.0); MEAN CORPUSCULAR VOLUME 95.8 fL (80.0-94.0); MEAN PLATELET VOLUME 8.9 fL (7.4-11.4); MONOCYTES # (AUTO) 0.5 10^3/uL (0.0-1.0); MONOCYTES % (AUTO) 11.3 %; NEUTROPHILS # (AUTO) 2.7 10^3/uL (1.5-6.6); NEUTROPHILS % (AUTO) 62.6 %; PLT - PLATELET COUNT 219 10^3/uL (130-450); RED BLOOD COUNT 4.16 10^6/uL (4.70-6.10); RED CELL DISTRIBUTION WIDTH 14.5 % (12.0-15.0); WHITE BLOOD COUNT 4.4 x10^3/uL (4.8-10.8)
[2018-12-19 10:45] LABS: HB2 TOTAL 14.1 g/dL; HEMOGLOBIN A1C 0.45 g/dL; HEMOGLOBIN A1C % 5.1 % (4.6-6.2)
[2018-12-19 10:58] LABS: ALBUMIN 4.3 g/dL (3.2-5.5); ALBUMIN/GLOBULIN RATIO 1.5 (1.0-2.2); ALKALINE PHOSPHATASE 41 IU/L (42-121); ALT ALANINE AMINOTRANSFERASE 29 IU/L (10-60); AST ASPARTATE AMINOTRANSFERASE 30 IU/L (10-42); BILIRUBIN,TOTAL 0.9 mg/dL (0.2-1.0); BUN - BLOOD UREA NITROGEN 16 mg/dL (6-20); CALCIUM 9.1 mg/dL (8.5-10.3); CARBON DIOXIDE - CO2 28 mmol/L (21-32); CHLORIDE 98 mmol/L (101-111); CHOL/HDL RATIO 1.9 (<5.0); CHOLESTEROL 200 mg/dL; CREATININE 0.8 mg/dL (0.6-1.2); GFR - MDRD 98 (>89); GLUCOSE 90 mg/dL (70-100); HDL CHOLESTEROL 108 mg/dL; SODIUM 134 mmol/L (135-145); TOTAL PROTEIN 7.1 g/dL (6.7-8.2)
[2018-12-19 11:19] LABS: LDL CHOLESTEROL,DIRECT 101 mg/dL; LDLD/HDL RATIO 0.9 (<3.6)
== END 2018-12-19 07:21 | disposition home or self-care (01) ==
LOC: LAB.F 07:20
PROVIDERS: ATTEND Nurse Practitioner Family
DX: I10 Essential (primary) hypertension (principal); Z13.220 Encounter for screening for lipoid disorders; Z13.1 Encounter for screening for diabetes mellitus; Z12.5 Encounter for screening for malignant neoplasm of prostate
CPT/HCPCS: 36415; 80050; 80061; 83036; 83721; 84153

== ENCOUNTER 2019-10-09 10:26 | Outpatient (CLI) | payer MEDICAID ==
[2019-10-09 17:15] LABS: BASOPHILS % (AUTO) 0.4 %; EOSINOPHILS % (AUTO) 0.3 %; HGB - HEMOGLOBIN 11.6 g/dL (14.0-18.0); LYMPHOCYTES # (AUTO) 0.9 10^3/uL (1.5-3.5); LYMPHOCYTES % (AUTO) 13.3 %; MEAN CORPUSCULAR HGB CONC 33.1 g/dL (32.0-36.0); MEAN CORPUSCULAR VOLUME 96.4 fL (80.0-94.0); MEAN PLATELET VOLUME 10.5 fL (7.4-11.4); MONOCYTES # (AUTO) 0.7 10^3/uL (0.0-1.0); MONOCYTES % (AUTO) 10.6 %; NEUTROPHILS # (AUTO) 5.2 10^3/uL (1.5-6.6); PLT - PLATELET COUNT 229 10^3/uL (130-450); RED BLOOD COUNT 3.63 10^6/uL (4.70-6.10); RED CELL DISTRIBUTION WIDTH 14.5 % (12.0-15.0)
== END 2019-10-09 10:27 | disposition home or self-care (01) ==
LOC: LAB.S 10:26
PROVIDERS: ATTEND Physician Assistant
DX: D53.9 Nutritional anemia, unspecified (principal)
CPT/HCPCS: 36415; 85025

== ENCOUNTER 2020-02-24 06:50 | Emergency (ER) | payer MEDICAID ==
--- NOTE | 2020-02-24 07:05 | ED Physician Documentation ---
PD HPI ABD PAIN - Stated complaint Stated Complaint: ABD PX - Chief complaint Chief Complaint: Abd Pain - History obtained from History obtained from: Patient - History of Present Illness Timing - onset: How many weeks ago (2), Chronic (he claims some degree of stomach discomfort much of the time.) Timing - details: Gradual onset, Still present, Waxing and waning Quality: Cramping, Aching, Pain Location: Epigastric, Periumbilical Radiation: No: Chest, Lower back, Upper back Improved by: No: Eating Worsened by: Eating. No: Breathing, Palpation Associated symptoms: Nausea. No: Fever, Vomiting, Diarrhea, Constipation, Candido na, Hematochezia Similar symptoms before: No diagnosis (He states he has fairly regular upper abdominal discomfort and lack of appetite for at least a year or so. He has had episodic worsening pain associated with some nausea. He has had previous CT scans as well as upper and lower endoscopies without any firm diagnosis.) Recently seen: [facility] (He talked with his provider at [facility] who is planning an outpatient CT scan in the next week or 2) Review of Systems Constitutional: denies: Fever, Chills Nose: denies: Rhinorrhea / runny nose, Congestion Throat: denies: Sore throat Respiratory: denies: Cough GI: reports: Abdominal Pain, Nausea. denies: Vomiting, Constipation, Diarrhea, Bloody / black stool : denies: Dysuria, Frequency Musculoskeletal: denies: Neck pain, Back pain Neurologic: reports: Generalized weakness. denies: Focal weakness, Numbness, Near syncope PD PAST MEDICAL HISTORY - Past Medical History Cardiovascular: Hypertension GI: GERD, Other (IBS) : None Psych: Depression Musculoskeletal: Osteoarthritis - Past Surgical History Past Surgical History: Yes General: Hiatal hernia repair, Colonoscopy - Present Medications Home Medications: Ambulatory Orders Medication Instructions Recorded Confirmed lisinopriL [Zestril] 40 mg PO DAILY 02/11/13 02/05/20 Alprazolam [Xanax] 0.5 mg ORAL DAILY PRN 04/09/15 02/05/20 Nortriptyline HCl 50 mg PO BID 07/25/18 02/05/20 Digestive 8/L.acidoph/Pectin 1 each PO BID #60 tablet 02/24/20 [Digestive Enzymes Tablet] Famotidine 20 mg PO DAILY #30 tablet 07/18/20 Hydrocodone/Acetaminophen [[place] 1 each PO Q6H PRN #20 tablet 02/24/20 5-325 Tablet] Ondansetron Odt [Zofran] 4 mg TL Q6H PRN #20 tablet 02/24/20 Saccharomyces Boulardii [Florastor] 250 mg PO BID #60 capsule 02/24/20 - Allergies Allergies/Adverse Reactions: Allergies Allergy/AdvReac Type Severity Reaction Status Date / Time tetracycline [Tetracycline] Allergy Mild Rash Verified 02/24/20 07:00 Sulfa (Sulfonamide Allergy Unknown unknown Verified 02/24/20 07:00 Antibiotics) - Social History Does the pt smoke?: Yes Smoking Status: Former smoker Does the pt drink ETOH?: Yes Does the pt have substance abuse?: Yes - Immunizations Immunizations are current?: No Immunizations: TDAP >10years/unknown - POLST Patient has POLST: No PD ED PE NORMAL - Vitals Vital signs reviewed: Yes - General General: Alert and oriented X 3, No acute distress, Well developed/nourished - HEENT HEENT: Moist mucous membranes, Pharynx benign - Neck Neck: Supple, no meningeal sign, No adenopathy - Cardiac Cardiac: RRR, No murmur - Respiratory Respiratory: Clear bilaterally - Abdomen Abdomen: Normal bowel sounds, Soft, Non distended, No organomegaly, Other (tender epigastric and mid abd without guarding nor percussion tenderness. ) - Male Male : Deferred - Rectal Rectal: Deferred - Back Back: No CVA TTP - Derm Derm: Normal color, Warm and dry - Neuro Neuro: Alert and oriented X 3, No motor deficit, Normal speech Results - Vitals Vitals: Vital Signs - 24 hr 02/24/20 02/24/20 02/24/20 06:50 07:21 09:00 Temperature 36.2 C L 36.7 C Heart Rate 103 H 89 85 Respiratory 18 16 16 Rate Blood Pressure 145/82 H 133/91 H 125/71 O2 Saturation 99 99 99 02/24/20 02/24/20 10:03 10:47 Temperature 36.7 C Heart Rate 77 75 Respiratory 16 16 Rate Blood Pressure 125/64 128/68 O2 Saturation 97 99 Oxygen O2 Source Room air - Labs Labs: Laboratory Tests 02/24/20 02/24/20 02/24/20 07:35 07:35 07:35 WBC 4.4 L RBC 3.96 L Hgb 13.0 L Hct 37.6 L MCV 94.9 H MCH 32.8 H MCHC 34.6 RDW 14.3 Plt Count 244 MPV 10.3 Neut # (Auto) 3.2 Lymph # (Auto) 0.6 L [place] # (Auto) 0.5 Eos # (Auto) 0.0 Baso # (Auto) 0.0 Absolute Nucleated RBC 0.00 Nucleated RBC % 0.0 ESR 7 Sodium 133 L Potassium 4.0 Chloride 100 L Carbon Dioxide 22 Anion Gap 11.0 BUN 11 Creatinine 0.7 Estimated GFR (MDRD) 114 Glucose 106 H Calcium 9.3 Magnesium 2.0 Total Bilirubin 1.1 H AST 31 ALT 28 Alkaline Phosphatase 42 Total Protein 7.4 Albumin 4.4 Globulin 3.0 Albumin/Globulin Ratio 1.5 Lipase 39 Urine Color Urine Clarity Urine pH Ur Specific [place] Urine Protein Urine Glucose (UA) Urine Ketones Urine Occult Blood Urine Nitrite Urine Bilirubin Urine Urobilinogen Ur Leukocyte Esterase Ur Microscopic Review Urine Culture Comments 02/24/20 08:50 WBC RBC Hgb Hct MCV MCH MCHC RDW Plt Count MPV Neut # (Auto) Lymph # (Auto) [place] # (Auto) Eos # (Auto) Baso # (Auto) Absolute Nucleated RBC Nucleated RBC % ESR Sodium Potassium Chloride Carbon Dioxide Anion Gap BUN Creatinine Estimated GFR (MDRD) Glucose Calcium Magnesium Total Bilirubin AST ALT Alkaline Phosphatase Total Protein Albumin Globulin Albumin/Globulin Ratio Lipase Urine Color YELLOW Urine Clarity CLEAR Urine pH 6.5 Ur Specific [place] <=1.005 Urine Protein NEGATIVE Urine Glucose (UA) NEGATIVE Urine Ketones 15 H Urine Occult Blood NEGATIVE Urine Nitrite NEGATIVE Urine Bilirubin NEGATIVE Urine Urobilinogen 0.2 (NORMAL) Ur Leukocyte Esterase NEGATIVE Ur Microscopic Review NOT INDICATED Urine Culture Comments NOT INDICATED - Rads (name of study) abd CT Radiology: Prelim report reviewed (mild fluid along intestine, consider enteritis. No other acute process. ), See rad report PD MEDICAL DECISION MAKING - ED course Complexity details: reviewed results, re-evaluated patient (consider IBS or IBD, malabsorption process. Can try digestive enzymes and probiotics, some softener. Pain meds PRN. [facility]. ), considered differential, d/w patient Departure - Departure Disposition: 01 Home, Self Care Clinical Impression: Generalized abdominal pain Condition: Stable Instructions: ED Abdominal Pain Unkn Cause Follow-Up: ARLENE VARGAS PA-C [Primary Care Provider] - Prescriptions: Digestive 8/L.acidoph/Pectin [Digestive Enzymes Tablet] 1 each PO BID #60 tablet Famotidine 20 mg PO DAILY #30 tablet Saccharomyces Boulardii [Florastor] 250 mg PO BID #60 capsule Hydrocodone/Acetaminophen [[place] 5-325 Tablet] 1 each PO Q6H PRN #20 tablet PRN Reason: Pain Ondansetron Odt [Zofran] 4 mg TL Q6H PRN #20 tablet PRN Reason: Nausea / Vomiting Comments: There is not any significant abnormality noted on your CT scan or blood test. The radiology report comments on a little inflammation in the intestine wall which would suggest some possible inflammation (such as inflammatory bowel disease or irritable bowel or could even be mild food poisoning or such.) We can try a combination of the acid reducing medicine famotidine as well as some probiotics and digestive enzymes twice daily for the next month and see if overall you have less abdominal pains. Add ondansetron if needed periodically for nausea and Tylenol or hydrocodone if needed for pains when they are bad. [facility] care. Discharge Date/Time: 02/24/20 10:48
[2020-02-24] MEDS ORDERED: ONDANSETRON 4 MG/2 ML VIAL IVP STA (07:36)
[2020-02-24] MEDS ORDERED: HYDROmorphone 1 MG/ML CARPUJECT IVP STA ×2 (07:36→09:43)
[2020-02-24] MEDS ORDERED: SODIUM CHLORIDE 0.9% 1,000 ML IV STA (07:36)
[2020-02-24] MEDS ORDERED: KETOROLAC 15 MG/ML VIAL IVP STA (07:37)
[2020-02-24 07:57] LABS: BASOPHILS % (AUTO) 0.5 %; EOSINOPHILS % (AUTO) 0.5 %; LYMPHOCYTES # (AUTO) 0.6 10^3/uL (1.5-3.5); MEAN CORPUSCULAR HEMOGLOBIN 32.8 pg (27.0-31.0); MEAN CORPUSCULAR HGB CONC 34.6 g/dL (32.0-36.0); MEAN CORPUSCULAR VOLUME 94.9 fL (80.0-94.0); MEAN PLATELET VOLUME 10.3 fL (7.4-11.4); MONOCYTES # (AUTO) 0.5 10^3/uL (0.0-1.0); MONOCYTES % (AUTO) 11.8 %; NEUTROPHILS # (AUTO) 3.2 10^3/uL (1.5-6.6); NEUTROPHILS % (AUTO) 72.5 %; PLT - PLATELET COUNT 244 10^3/uL (130-450); RED BLOOD COUNT 3.96 10^6/uL (4.70-6.10); RED CELL DISTRIBUTION WIDTH 14.3 % (12.0-15.0); WHITE BLOOD COUNT 4.4 x10^3/uL (4.8-10.8)
[2020-02-24 07:59] LABS: ALBUMIN 4.4 g/dL (3.2-5.5); ALBUMIN/GLOBULIN RATIO 1.5 (1.0-2.2); BILIRUBIN,TOTAL 1.1 mg/dL (0.2-1.0); CALCIUM 9.3 mg/dL (8.5-10.3); CREATININE 0.7 mg/dL (0.6-1.2); TOTAL PROTEIN 7.4 g/dL (6.7-8.2)
[2020-02-24] MEDS ORDERED: IOVERSOL 320 100 ML VIAL IVP ONE ×2 (08:44→09:31)
[2020-02-24 09:05] LABS: BILIRUBIN,URINE NEGATIVE (NEGATIVE); GLUCOSE, URINE (UA) NEGATIVE (NEGATIVE); KETONES,URINE (UA) 15 mg/dL (NEGATIVE); LEUKOCYTE ESTERASE, URINE NEGATIVE (NEGATIVE); NITRITE,URINE NEGATIVE (NEGATIVE); OCCULT BLOOD,URINE NEGATIVE (NEGATIVE); PH,URINE 6.5 PH (5.0-7.5); PROTEIN,URINE NEGATIVE (NEGATIVE); UROBILINOGEN,URINE 0.2 (NORMAL) E.U./dL (NORMAL)
[2020-02-24 09:12] LABS: CLARITY,URINE CLEAR (CLEAR)
--- NOTE | 2020-02-24 09:18 | CT Report ---
PROCEDURE: Abdomen/Pelvis W INDICATIONS: Abdominal pain, acute, nonlocalized CONTRAST: IV CONTRAST: Optiray 320 ml: 100 PO CONTRAST: *NO PO CONTRAST TECHNIQUE: After the administration of oral and intravenous contrast, 5 mm thick sections acquired from the diap hragms to the symphysis. 5 mm thick coronal and sagittal reformats were acquired. For radiation dos e reduction, the following was used: automated exposure control, adjustment of mA and/or kV accordin g to patient size. COMPARISON: 11/24/2017, 04/09/2015, 02/11/2013. FINDINGS: Image quality: Excellent. ABDOMEN: Lung bases: Lung bases are clear. Heart size is normal. Solid organs: Liver demonstrates normal size. Within the right liver dome, there is a mildly hyperden se cyst, as on series 3 image 9. Smaller presumed liver cysts are seen within the more inferior right liver. Gallbladder is partially collapsed at the time of this study. The spleen demonstrates normal size and normal enhancement. Biliary system is non dilated. Pancreas enhances normally. No adrenal nodules. Kidneys demonstrate normal size and enhancement, without hydronephrosis. Peritoneum and bowel: Bowel loops demonstrate normal wall thickness and caliber. Mild free fluid can be seen along the leaves of the mesentery. No focal fluid collections are seen. Diverticulosis can b e seen, without ela findings of active diverticulitis. No appendix can be seen, either normal or ab normal. No focal right lower quadrant inflammatory changes are seen. No focal right lower quadrant in flammatory changes are seen. Nodes and vessels: No retroperitoneal or mesenteric adenopathy by size criteria. Aorta and inferior vena cava are normal in size. Miscellaneous: No ventral hernias. PELVIS: Genitourinary: Bladder wall thickness is normal. Miscellaneous: No inguinal hernias or adenopathy. Bones: No suspicious bony lesions. No vertebral body compression fractures. There is a chronic, im properly healed fracture of the right pubis. Focal L5-S1 degenerative change is seen and there is foc al degenerative change seen of the thoracolumbar junction. Mild dextroconvex scoliotic curvature is s een. IMPRESSION: Mild fluid can be seen along the leaves of the mesentery. This is nonspecific, although enteritis is suspected. No dilated loops of small bowel are seen. No appendix can be seen, either normal or abnormal. No focal right lower quadrant inflammatory change s are seen. Diverticulosis can be seen, without ela findings of active diverticulitis. Incidental note is made of: Normal pelvis fracture Liver cysts Focal L5-S1 degenerative change and focal thoracolumbar junction degenerative change Dextroconvex scoliotic curvature Reviewed by: Piyush Candelaria MD on 02/24/2020 8:16 AM AKDT Approved by: Piyush Candelaria MD on 02/24/2020 8:16 AM AKDT Station ID: [id number]
[2020-02-24] MEDS ORDERED: FAMOTIDINE 20 MG/2 ML SYRINGE IVP STA (09:43)
[2020-02-24 10:48] VITALS: BP 128/68
[2020-02-24] MEDS ORDERED: DILTIAZEM 50 MG/10 ML VIAL ONE (10:50)
== END 2020-02-24 10:48 | disposition home or self-care (01) ==
LOC: ED 06:50
DX: R10.84 Generalized abdominal pain (principal); Z87.891 Personal history of nicotine dependence
CPT/HCPCS: 36415; 74177; 80053; 81003; 83690; 83735; 85025; 85651; 96361; 96374; 96375; 96376; 99284; 99285; J1170; Q9967; 81001; 87086

== ENCOUNTER 2020-04-19 16:22 | Emergency (ER) | payer MEDICAID ==
--- NOTE | 2020-04-19 16:49 | ED Physician Documentation ---
PD HPI LOWER EXT INJURY - Stated complaint Stated Complaint: RT LEG SWELLING - Chief complaint Chief Complaint: Ext Problem - History obtained from History obtained from: Patient - Additional information Additional information: Had some aches and pains in the right knee for some time, but as of last night noticed a charley horse and then swelling in the right calf. No chest pain or trouble breathing. Review of Systems Constitutional: denies: Fever, Chills Cardiac: denies: Chest pain / pressure, Palpitations Respiratory: denies: Dyspnea, Cough PD PAST MEDICAL HISTORY - Past Medical History Cardiovascular: Hypertension Respiratory: None Neuro: None Endocrine/Autoimmune: None GI: GERD, Other : None HEENT: None Psych: Depression Musculoskeletal: Osteoarthritis Derm: None - Past Surgical History Past Surgical History: Yes General: Hiatal hernia repair, Colonoscopy HEENT: Tonsil/Adenoidectomy - Present Medications Home Medications: Ambulatory Orders Medication Instructions Recorded Confirmed lisinopriL [Zestril] 40 mg PO DAILY 02/11/13 02/05/20 Alprazolam [Xanax] 0.5 mg ORAL DAILY PRN 04/09/15 02/05/20 Nortriptyline HCl 50 mg PO BID 07/25/18 02/05/20 Digestive 8/L.acidoph/Pectin 1 each PO BID #60 tablet 02/24/20 [Digestive Enzymes Tablet] Famotidine 20 mg PO DAILY #30 tablet 02/24/20 Hydrocodone/Acetaminophen [[place] 1 each PO Q6H PRN #20 tablet 02/24/20 5-325 Tablet] Ondansetron Odt [Zofran] 4 mg TL Q6H PRN #20 tablet 02/24/20 Saccharomyces Boulardii [Florastor] 250 mg PO BID #60 capsule 02/24/20 - Allergies Allergies/Adverse Reactions: Allergies Allergy/AdvReac Type Severity Reaction Status Date / Time tetracycline [Tetracycline] Allergy Mild Rash Verified 02/24/20 07:00 Sulfa (Sulfonamide Allergy Unknown unknown Verified 02/24/20 07:00 Antibiotics) - Social History Does the pt smoke?: Yes Smoking Status: Former smoker Does the pt drink ETOH?: Yes Does the pt have substance abuse?: Yes - Immunizations Immunizations are current?: No Immunizations: TDAP >10years/unknown - POLST Patient has POLST: No PD ED PE NORMAL - Vitals Vital signs reviewed: Yes - General General: Alert and oriented X 3, No acute distress - HEENT HEENT: PERRL, EOMI - Neck Neck: Supple, no meningeal sign, No bony TTP - Extremities Extremities: Other (Edema of the right calf and ankle with negative Homans sign. No tenderness or swelling above the knee.) - Neuro Neuro: Alert and oriented X 3, Normal speech Results - Vitals Vitals: Vital Signs - 24 hr 04/19/20 04/19/20 16:30 19:12 Temperature 37.1 C 36.7 C Heart Rate 87 91 Respiratory 16 16 Rate Blood Pressure 134/90 H 170/89 H O2 Saturation 98 97 Oxygen O2 Source Room air PD MEDICAL DECISION MAKING - ED course ED course: History and physical more consistent with Cano's cyst than DVT. Ultrasound done and negative for DVT. Departure - Departure Disposition: 01 Home, Self Care Clinical Impression: Right leg swelling, Cano's cyst, ruptured Condition: Good Record reviewed to determine appropriate education?: Yes Instructions: ED Cyst Cano Comments: No evidence of a blood clot today. You do have a Cano's cyst. This is related to degenerative change of the knee joint. You can talk with your doctor about a referral to orthopedics or you can just try to ignore it. Return for new or worsening symptoms. Discharge Date/Time: 04/19/20 19:22
[2020-04-19 19:15] VITALS: BP 170/89
--- NOTE | 2020-04-19 19:56 | Ultrasound Report ---
PROCEDURE: Duplex Ext Veins Right INDICATIONS: RLE swelling TECHNIQUE: Real-time imaging, as well as color and pulse Doppler interrogation, were performed of the lower extr emity deep veins from the inguinal ligament to the popliteal fossa. COMPARISON: None. FINDINGS: The deep veins are normally compressible, and free of intraluminal thrombus. Color and pu lse Doppler demonstrate normal phasic intraluminal flow. There is normal augmentation response to di stal compression maneuver. Simple appearing ovoid cyst is present in the soft tissues medial to the knee measuring about 2.5 cm in maximal diameter. Trace amount of fluid, potentially joint fluid is present lateral to the knee. I n the posterior calf, there is mild subcutaneous edema. IMPRESSION: 1. No DVT in the right lower extremity. 2. Small amount of fluid around the knee. Consider MRI for further delineation of soft tissues. 3. Mild nonspecific edema. Reviewed by: Vicky Nunez MD on 04/19/2020 7:54 PM PDT Approved by: Vicky Nunez MD on 04/19/2020 7:54 PM PDT Station ID: [id number]
== END 2020-04-19 19:22 | disposition home or self-care (01) ==
LOC: ED 16:22
DX: R22.41 Localized swelling, mass and lump, right lower limb (principal); M66.0 Rupture of popliteal cyst; Z87.891 Personal history of nicotine dependence
CPT/HCPCS: 99282; 99284

== ENCOUNTER 2020-05-20 08:00 | Outpatient (CLI) | payer MEDICAID ==
--- NOTE | 2020-05-21 17:25 | XRAY Report ---
PROCEDURE: Knee 3 View RT INDICATIONS: RIGHT KNEE PAIN TECHNIQUE: 3 views of the right knee(s) were acquired. COMPARISON: None. FINDINGS: Bones: No fractures or dislocations. No suspicious bony lesions. Soft tissues: No joint effusion. No suspicious soft tissue calcifications. IMPRESSION: Right knee without acute radiographic abnormalities. Mild tricompartmental degenerative changes. If there is persistent clinical concern for internal soft tissue derangement, further evaluation with MRI can be considered. Reviewed by: Saurabh Duncan MD on 05/21/2020 5:24 PM PDT Approved by: Saurabh Duncan MD on 05/21/2020 5:24 PM PDT Station ID: [id number]
== END 2020-05-20 23:59 | disposition home or self-care (01) ==
LOC: DI.S 08:00
PROVIDERS: ATTEND Physician Assistant Medical
DX: M17.11 Unilateral primary osteoarthritis, right knee (principal)

== ENCOUNTER 2020-08-12 10:33 | Outpatient (CLI) | payer MEDICAID ==
[2020-08-12 15:38] LABS: BASOPHILS % (AUTO) 0.8 %; EOSINOPHILS # (AUTO) 0.1 10^3/uL (0.0-0.7); EOSINOPHILS % (AUTO) 1.1 %; HGB - HEMOGLOBIN 13.6 g/dL (14.0-18.0); LYMPHOCYTES # (AUTO) 0.7 10^3/uL (1.5-3.5); LYMPHOCYTES % (AUTO) 12.7 %; MEAN CORPUSCULAR HEMOGLOBIN 31.6 pg (27.0-31.0); MEAN CORPUSCULAR HGB CONC 33.4 g/dL (32.0-36.0); MEAN CORPUSCULAR VOLUME 94.4 fL (80.0-94.0); MEAN PLATELET VOLUME 10.2 fL (7.4-11.4); MONOCYTES # (AUTO) 0.6 10^3/uL (0.0-1.0); MONOCYTES % (AUTO) 11.6 %; NEUTROPHILS # (AUTO) 3.9 10^3/uL (1.5-6.6); NEUTROPHILS % (AUTO) 73.4 %; PLT - PLATELET COUNT 248 10^3/uL (130-450); RED BLOOD COUNT 4.31 10^6/uL (4.70-6.10); RED CELL DISTRIBUTION WIDTH 13.5 % (12.0-15.0); WHITE BLOOD COUNT 5.3 x10^3/uL (4.8-10.8)
[2020-08-12 16:25] LABS: ALBUMIN 4.4 g/dL (3.2-5.5); ALBUMIN/GLOBULIN RATIO 1.5 (1.0-2.2); ALKALINE PHOSPHATASE 49 IU/L (42-121); ALT ALANINE AMINOTRANSFERASE 24 IU/L (10-60); AST ASPARTATE AMINOTRANSFERASE 28 IU/L (10-42); BILIRUBIN,TOTAL 0.8 mg/dL (0.2-1.0); BUN - BLOOD UREA NITROGEN 18 mg/dL (6-20); CALCIUM 9.3 mg/dL (8.5-10.3); CARBON DIOXIDE - CO2 28 mmol/L (21-32); CHLORIDE 97 mmol/L (101-111); CREATININE 0.7 mg/dL (0.6-1.2); GLUCOSE 114 mg/dL (70-100); SODIUM 134 mmol/L (135-145); TOTAL PROTEIN 7.4 g/dL (6.7-8.2)
[2020-08-12 16:35] LABS: CRP - C-REACTIVE PROTEIN < 1.0 mg/dL (0-1.0)
== END 2020-08-12 23:59 | disposition home or self-care (01) ==
LOC: LAB.S 10:33
PROVIDERS: ATTEND Physician Assistant Medical
DX: N40.0 Benign prostatic hyperplasia without lower urinary tract symptoms (principal); R30.0 Dysuria; D53.9 Nutritional anemia, unspecified
CPT/HCPCS: 36415; 80050; 82746; 84153; 85651; 86140; 87086

== ENCOUNTER 2020-10-17 07:00 | Outpatient (CLI) | payer MEDICAID ==
--- NOTE | 2020-10-17 15:40 | XRAY Report ---
PROCEDURE: Knee 4 View RT INDICATIONS: R KNEE, DJD TECHNIQUE: 4 views of the right knee(s) were acquired. COMPARISON: X-ray right knee 05/20/2020 FINDINGS: Bones: No fractures or dislocations. No suspicious bony lesions. There is moderate to severe media l compartment narrowing, left greater than right. Mild bilateral lateral and right patellofemoral com partment narrowing are present. There are no erosions. Minimal periarticular osteophytes are present. Overall appearance is stable compared to prior exam. Soft tissues: No joint effusion. No suspicious soft tissue calcifications. IMPRESSION: Stable appearance of tricompartmental degenerative change consistent with arthritis. Reviewed by: Vicky Wynne MD on 10/17/2020 3:39 PM PST Approved by: Vicky Wynne MD on 10/17/2020 3:39 PM PST Station ID: [id number]
== END 2020-10-17 23:59 | disposition home or self-care (01) ==
LOC: DI.N 07:00
PROVIDERS: ATTEND Orthopaedic Surgery
DX: M17.11 Unilateral primary osteoarthritis, right knee (principal)

== ENCOUNTER 2020-11-28 18:59 | Emergency (ER) | payer MEDICARE, MEDICAID ==
--- OUTSIDE RECORDS SUMMARY | 2020-11-28 19:11 | EXTERNAL MEDICAL SUMMARY RPT | Continuity of Care Document ---
:1955 Demographics Phone Unavailable Preferred Language Unknown Marital Status Unknown Judaism Affiliation Unknown Race Unknown Ethnic Group Unknown Author Organization [facility] Address [address] [phone] Phone Social History date description facility [id number]
--- NOTE | 2020-11-28 19:26 | ED Physician Documentation ---
PD HPI ABD PAIN - Stated complaint Stated Complaint: ABD PX - Chief complaint Chief Complaint: Abd Pain - History obtained from History obtained from: Patient - Additional information Additional information: 65-year-old gentleman has noticed a change in the abdominal contour over the last few weeks. Slight epigastric pain with it. No nausea or changes in bowel movements. Pain is much worse if he bends over or changes position. It is mild at rest. Does not change with eating. Review of Systems Constitutional: reports: Reviewed and negative Ears: reports: Reviewed and negative Nose: reports: Reviewed and negative Throat: reports: Reviewed and negative PD PAST MEDICAL HISTORY - Past Medical History Cardiovascular: Hypertension Respiratory: None Neuro: None Endocrine/Autoimmune: None GI: GERD, Other : None HEENT: None Psych: Depression Musculoskeletal: Osteoarthritis Derm: None - Past Surgical History Past Surgical History: Yes General: Hiatal hernia repair, Colonoscopy HEENT: Tonsil/Adenoidectomy - Present Medications Home Medications: Ambulatory Orders Medication Instructions Recorded Confirmed Nortriptyline HCl 50 mg PO BID 07/25/18 11/28/20 Famotidine 20 mg PO DAILY #30 tablet 02/24/20 11/28/20 Losartan/Hydrochlorothiazide 1 tab PO DAILY 11/28/20 11/28/20 [Losartan-Hctz 100-12.5 mg Tab] - Allergies Allergies/Adverse Reactions: Allergies Allergy/AdvReac Type Severity Reaction Status Date / Time tetracycline [Tetracycline] Allergy Mild Rash Verified 11/28/20 19:13 Sulfa (Sulfonamide Allergy Unknown unknown Verified 11/28/20 19:13 Antibiotics) - Social History Does the pt smoke?: Yes Smoking Status: Former smoker Does the pt drink ETOH?: Yes Does the pt have substance abuse?: Yes - Immunizations Immunizations are current?: No Immunizations: TDAP >10years/unknown - POLST Patient has POLST: No PD ED PE NORMAL - Vitals Vital signs reviewed: Yes - General General: Alert and oriented X 3, No acute distress - Abdomen Abdomen: Normal bowel sounds, Soft, Other (Mild epigastric tenderness potential ly some fullness, potentially small ventral hernia. He does have an umbilical hernia which is nontender and easily reducible.) - Derm Derm: Normal color, Warm and dry - Neuro Neuro: Alert and oriented X 3, Normal speech Results - Vitals Vitals: Vital Signs - 24 hr 11/28/20 11/28/20 19:08 19:12 Temperature 37.1 C 37.1 C Heart Rate 104 H 104 H Respiratory 19 19 Rate Blood Pressure 163/78 H 163/78 H O2 Saturation 98 98 Oxygen O2 Source Room air - EKG (time done) 1927 Rate: Rate (enter#) (93) Rhythm: NSR [place]: Normal Intervals: Normal OR, Other (lafb) Ischemia: Non specific changes. No: ST elevation c/w ischemia, ST depression - Labs Labs: Laboratory Tests 11/28/20 11/28/20 11/28/20 19:20 19:33 19:33 WBC 5.7 RBC 3.99 L Hgb 12.6 L Hct 37.5 L MCV 94.0 MCH 31.6 H MCHC 33.6 RDW 13.4 Plt Count 257 MPV 9.0 Neut # (Auto) 3.6 Lymph # (Auto) 1.2 L [place] # (Auto) 0.9 Eos # (Auto) 0.1 Baso # (Auto) 0.0 Absolute Nucleated RBC 0.00 Nucleated RBC % 0.0 Sodium 135 Potassium 3.7 Chloride 96 L Carbon Dioxide 29 Anion Gap 10.0 BUN 14 Creatinine 0.8 Estimated GFR (MDRD) 97 Glucose 90 Calcium 9.3 Total Bilirubin 0.5 AST 31 ALT 28 Alkaline Phosphatase 53 Total Protein 7.6 Albumin 4.7 Globulin 2.9 Albumin/Globulin Ratio 1.6 Lipase 31 Urine Color YELLOW Urine Clarity CLEAR Urine pH 7.5 Ur Specific [place] 1.010 Urine Protein NEGATIVE Urine Glucose (UA) NEGATIVE Urine Ketones NEGATIVE Urine Occult Blood NEGATIVE Urine Nitrite NEGATIVE Urine Bilirubin NEGATIVE Urine Urobilinogen 0.2 (NORMAL) Ur Leukocyte Esterase NEGATIVE Ur Microscopic Review NOT INDICATED Urine Culture Comments NOT INDICATED PD MEDICAL DECISION MAKING - ED course ED course: 65-year-old gentleman presents with epigastric pain and feeling like he is swollen there. Could be ventral hernia but not really present on exam. CT imaging was negative. He was mostly relieved to learn that there was no evidence of neoplastic process. Last colonoscopy was within the year without pertinent positive findings except for a benign polyp. Departure - Departure Disposition: 01 Home, Self Care Clinical Impression: Generalized abdominal pain Condition: Good Record reviewed to determine appropriate education?: Yes Instructions: ED Abdominal Pain Unkn Cause Male Comments: CT was normal, potentially I wonder if this might be pain related to stool in the transverse colon. Return if worsening but otherwise you can safely ignore this and follow-up with your primary care physician.
[2020-11-28 19:33] LABS: BILIRUBIN,URINE NEGATIVE (NEGATIVE); GLUCOSE, URINE (UA) NEGATIVE (NEGATIVE); KETONES,URINE (UA) NEGATIVE (NEGATIVE); LEUKOCYTE ESTERASE, URINE NEGATIVE (NEGATIVE); NITRITE,URINE NEGATIVE (NEGATIVE); OCCULT BLOOD,URINE NEGATIVE (NEGATIVE); PH,URINE 7.5 PH (5.0-7.5); PROTEIN,URINE NEGATIVE (NEGATIVE); UROBILINOGEN,URINE 0.2 (NORMAL) E.U./dL (NORMAL)
[2020-11-28 19:34] LABS: CLARITY,URINE CLEAR (CLEAR)
[2020-11-28 19:38] LABS: BASOPHILS % (AUTO) 0.5 %; EOSINOPHILS # (AUTO) 0.1 10^3/uL (0.0-0.7); EOSINOPHILS % (AUTO) 0.9 %; HCT - HEMATOCRIT 37.5 % (42.0-52.0); HGB - HEMOGLOBIN 12.6 g/dL (14.0-18.0); LYMPHOCYTES # (AUTO) 1.2 10^3/uL (1.5-3.5); LYMPHOCYTES % (AUTO) 20.8 %; MEAN CORPUSCULAR HEMOGLOBIN 31.6 pg (27.0-31.0); MEAN CORPUSCULAR HGB CONC 33.6 g/dL (32.0-36.0); MONOCYTES # (AUTO) 0.9 10^3/uL (0.0-1.0); NEUTROPHILS # (AUTO) 3.6 10^3/uL (1.5-6.6); NEUTROPHILS % (AUTO) 62.6 %; PLT - PLATELET COUNT 257 10^3/uL (130-450); RED BLOOD COUNT 3.99 10^6/uL (4.70-6.10); RED CELL DISTRIBUTION WIDTH 13.4 % (12.0-15.0); WHITE BLOOD COUNT 5.7 x10^3/uL (4.8-10.8)
[2020-11-28 19:52] LABS: ALBUMIN 4.7 g/dL (3.2-5.5); ALBUMIN/GLOBULIN RATIO 1.6 (1.0-2.2); BILIRUBIN,TOTAL 0.5 mg/dL (0.2-1.0); CALCIUM 9.3 mg/dL (8.5-10.3); CREATININE 0.8 mg/dL (0.6-1.2); POTASSIUM 3.7 mmol/L (3.5-5.0); TOTAL PROTEIN 7.6 g/dL (6.7-8.2)
[2020-11-28] MEDS ORDERED: IOPAMIDOL-300 100 ML VIAL ONE (20:11)
[2020-11-28] MEDS ORDERED: IOPAMIDOL-300 100 ML VIAL IVP ONE (20:51)
--- NOTE | 2020-11-28 21:39 | CT Report ---
PROCEDURE: Abdomen/Pelvis W INDICATIONS: IV only, epigastric pain,swelling CONTRAST: IV CONTRAST: Isovue 300 ml: 100 PO CONTRAST: *NO PO CONTRAST TECHNIQUE: After the administration of IV contrast, 5 mm thick sections acquired from the diaphragms to the sym physis. 5 mm thick coronal and sagittal reformats were acquired. For radiation dose reduction, the following was used: automated exposure control, adjustment of mA and/or kV according to patient size . COMPARISON: 02/24/2020 FINDINGS: Image quality: Excellent. ABDOMEN: Lung bases: Lung bases are clear. Heart size is normal. Solid organs: Liver and spleen are normal in size and enhancement. Liver cysts, stable in size are redemonstrated. Gallbladder is normal. Biliary system is non dilated. Pancreas enhances normally. No adrenal nodules. Kidneys demonstrate normal size and enhancement, without hydronephrosis. Peritoneum and bowel: Bowel loops demonstrate normal wall thickness and caliber. No free fluid or a ir. Nodes and vessels: No retroperitoneal or mesenteric adenopathy by size criteria. Aorta and inferior vena cava are normal in size. Miscellaneous: No ventral hernias. PELVIS: Genitourinary: Bladder wall thickness is normal. Mild prostatomegaly. Miscellaneous: No inguinal hernias or adenopathy. Bones: No suspicious bony lesions. Dystrophic calcifications anterior and lateral to the right pubi c symphysis, and several calcifications at the hamstrings tendon insertion bilaterally. Severe degene rative disc and endplate changes at L5-S1 and grade 1 anterolisthesis L4 on 5, chronic. No vertebral body compression fractures. IMPRESSION: 1. No evidence of acute process. 2. Osseous degenerative changes and remote traumatic changes as described. Reviewed by: Vicky Nunez MD on 11/28/2020 9:37 PM PDT Approved by: Vicky Nunez MD on 11/28/2020 9:37 PM PDT Station ID: [id number]
[2020-11-28 21:57] VITALS: BP 148/73
== END 2020-11-28 21:55 | disposition home or self-care (01) ==
LOC: ED 18:59
DX: R10.84 Generalized abdominal pain (principal); I10 Essential (primary) hypertension; F32.9 Major depressive disorder, single episode, unspecified; K21.9 Gastro-esophageal reflux disease without esophagitis; Z87.891 Personal history of nicotine dependence
CPT/HCPCS: 36415; 74177; 80053; 81003; 83690; 85025; 93005; 99283; 99284; Q9967; 81001; 87086

== ENCOUNTER 2021-10-08 07:53 | Outpatient (CLI) | payer MEDICARE, MEDICAID ==
--- NOTE | 2021-10-08 14:08 | Ultrasound Report ---
PROCEDURE: Aorta Screening INDICATIONS: PERSONAL HIST OF SMOKING, PULMONARY NODULE TECHNIQUE: Real time scanning was performed of the aorta and iliac arteries, with image documentatio n. COMPARISON: FINDINGS: Aorta: Proximal aortic diameter measures 2.8 x 2.7 cm. Mid-aorta measures 2.2 x 2.4 cm. Distal aor tic diameter is 1.9 x 1.9 cm. Iliac arteries: Right common iliac artery measures 1.0 x 1.2 cm. Left common iliac artery measures 1.1 x 1.2 cm. IMPRESSION: No aneurysmal dilation. Reviewed by: Vicky Wynne MD on 10/08/2021 2:06 PM PST Approved by: Vicky Wynne MD on 10/08/2021 2:06 PM PST Station ID: [id number]
--- NOTE | 2021-10-08 16:06 | CT Report ---
PROCEDURE: CHEST WO INDICATIONS: Solitary pulmonary nodule of lung TECHNIQUE: Noncontrast 1mm axial images were acquired from the pulmonary apices to the posterior costophrenic an gles. Axial 5 mm soft tissue kernel reconstructions were performed as well as 8 mm axial MIP and cor onal and sagittal 5 mm reformations. For radiation dose reduction, the following was used: automate d exposure control, adjustment of mA and/or kV according to patient size. COMPARISON: CT abdomen pelvis 11/28/2020 and 04/09/2015. The CT performed 01/18/2021 mentioned on the or gopi is not available for review. FINDINGS: Image quality: Excellent. Lungs and pleura: Mild septal thickening posteriorly in both lower lungs no suspicious lung nodules or masses. No acute air space opacities. No pleural effusions or pneumothorax. Central and peripher al airways are patent and normal in caliber. Mediastinum: Heart size is normal. Mild coronary artery calcification. No pericardial effusion. No mediastinal adenopathy by size criteria. Thoracic aorta and central pulmonary arteries are normal i n size. Esophagus is normal in caliber. No hiatal hernia. Bones and chest wall: No suspicious bony lesions. Severe multilevel degenerative disc changes in the lower thoracic/upper lumbar spine with grade 1 retrolisthesis L1 on 2. Thoracic vertebral bodies are otherwise within normal limits. Moderate degenerative changes in both glenohumeral joints. No verte bral body compression fractures. No axillary or supraclavicular adenopathy by size criteria. The th yroid is normal in size and there are no incidental findings. Abdomen: 1.9 cm liver dome cyst. Smaller cysts in the distal right hepatic lobe. Visualized upper ab dominal solid organs and bowel loops appear otherwise normal in the absence of contrast. IMPRESSION: 1. No suspicious lung nodules or masses. 2. Degenerative changes in the lower thoracic and upper lumbar spine. Reviewed by: Vicky Nunez MD on 10/08/2021 4:05 PM PST Approved by: Vicky Nunez MD on 10/08/2021 4:05 PM PST Station ID: [id number]
== END 2021-10-08 07:54 | disposition home or self-care (01) ==
LOC: DI 07:53
PROVIDERS: ATTEND Nurse Practitioner Family
DX: M47.814 Spondylosis without myelopathy or radiculopathy, thoracic region (principal); M47.816 Spondylosis without myelopathy or radiculopathy, lumbar region; Z87.891 Personal history of nicotine dependence

== ENCOUNTER 2021-11-17 12:25 | Emergency (ER) | payer MEDICARE, MEDICAID ==
[2021-11-17 12:33] VITALS: BP 150/90
[2021-11-17] MEDS ORDERED: HYOSCYAMINE SL 0.125 MG TABLET SL STA (12:46)
[2021-11-17 12:57] LABS: BASOPHILS % (AUTO) 0.4 %; EOSINOPHILS % (AUTO) 0.6 %; HGB - HEMOGLOBIN 14.3 g/dL (14.0-18.0); LYMPHOCYTES # (AUTO) 1.1 10^3/uL (1.5-3.5); LYMPHOCYTES % (AUTO) 20.7 %; MEAN PLATELET VOLUME 9.3 fL (7.4-11.4); MONOCYTES # (AUTO) 0.8 10^3/uL (0.0-1.0); MONOCYTES % (AUTO) 14.3 %; NEUTROPHILS # (AUTO) 3.5 10^3/uL (1.5-6.6); NEUTROPHILS % (AUTO) 63.8 %; PLT - PLATELET COUNT 236 10^3/uL (130-450); RED BLOOD COUNT 4.47 10^6/uL (4.70-6.10); RED CELL DISTRIBUTION WIDTH 13.9 % (12.0-15.0); WHITE BLOOD COUNT 5.4 x10^3/uL (4.8-10.8)
[2021-11-17 13:09] LABS: ALBUMIN 4.5 g/dL (3.2-5.5); ALBUMIN/GLOBULIN RATIO 1.3 (1.0-2.2); BILIRUBIN,TOTAL 0.8 mg/dL (0.2-1.0); CALCIUM 9.8 mg/dL (8.5-10.3); CREATININE 0.9 mg/dL (0.6-1.2); POTASSIUM 4.3 mmol/L (3.5-5.0)
--- NOTE | 2021-11-17 13:29 | ED Physician Documentation ---
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 He states that he has had back pain for several years, worse with movement, better with rest. No loss of bowel or bladder control. Has been told he has degenerative disc disease in his back. He also states he has had chronic abdominal pain for years. He reports normal colonoscopies, endoscopies, ultrasounds, CT scans. He states that he had increased cramping today. He states he has been diagnosed with IBS. He does drink alcohol at home. No fevers. No chills. No diarrhea. No constipation. No blood in the stool. Review of Systems Constitutional: denies: Fever, Chills Nose: denies: Rhinorrhea / runny nose, Congestion Throat: denies: Sore throat Cardiac: denies: Chest pain / pressure, Palpitations GI: denies: Abdominal Pain, Nausea, Vomiting, Diarrhea : denies: Dysuria, Incontinent, Hematuria Musculoskeletal: reports: Back pain (Low back pain, chronic and unchanged.). denies: Neck pain PD PAST MEDICAL HISTORY - Past Medical History Cardiovascular: Hypertension Respiratory: None Neuro: None Endocrine/Autoimmune: None GI: GERD, Other : None HEENT: None Psych: Depression Musculoskeletal: Osteoarthritis Derm: None - Past Surgical History Past Surgical History: Yes General: Hiatal hernia repair, Colonoscopy HEENT: Tonsil/Adenoidectomy - Present Medications Home Medications: Ambulatory Orders Medication Instructions Recorded Confirmed Nortriptyline HCl 50 mg PO BID 07/25/18 11/28/20 Famotidine 20 mg PO DAILY #30 tablet 02/24/20 11/28/20 Losartan/Hydrochlorothiazide 1 tab PO DAILY 11/28/20 11/28/20 [Losartan-Hctz 100-12.5 mg Tab] Hyoscyamine Sulfate [Levsin-Sl] 0.125 mg SL Q6H PRN #30 tab 11/17/21 - Allergies Allergies/Adverse Reactions: Allergies Allergy/AdvReac Type Severity Reaction Status Date / Time tetracycline [Tetracycline] Allergy Mild Rash Verified 11/17/21 12:29 Sulfa (Sulfonamide Allergy Unknown unknown Verified 11/17/21 12:29 Antibiotics) - Social History Does the pt smoke?: Yes Smoking Status: Current every day smoker Does the pt drink ETOH?: Yes Does the pt have substance abuse?: Yes - Immunizations Immunizations are current?: No Immunizations: TDAP >10years/unknown - POLST Patient has POLST: No PD ED PE NORMAL - Vitals Vital signs reviewed: Yes - General General: Alert and oriented X 3, No acute distress, Well developed/nourished - HEENT HEENT: PERRL, Moist mucous membranes - Neck Neck: Supple, no meningeal sign, No bony TTP - Cardiac Cardiac: RRR, Strong equal pulses - Respiratory Respiratory: No respiratory distress, Clear bilaterally - Abdomen Abdomen: Soft, Non tender, Non distended - Back Back: No spinal TTP, Other (Normal bilateral lower extremity patellar and ankle jerk reflexes. Normal great toe extension bilaterally. no saddle anesthesia) - Derm Derm: Warm and dry - Extremities Extremities: No edema - Neuro Neuro: Alert and oriented X 3, No motor deficit, No sensory deficit - Psych Psych: Normal mood, Normal affect Results - Vitals Vitals: Vital Signs - 24 hr 11/17/21 12:29 Temperature 36.5 C Heart Rate 83 Respiratory 16 Rate Blood Pressure 150/90 H O2 Saturation 100 Oxygen O2 Source Room air - Labs Labs: Laboratory Tests 11/17/21 11/17/21 12:52 12:52 WBC 5.4 RBC 4.47 L Hgb 14.3 Hct 42.0 MCV 94.0 MCH 32.0 H MCHC 34.0 RDW 13.9 Plt Count 236 MPV 9.3 Neut # (Auto) 3.5 Lymph # (Auto) 1.1 L [place] # (Auto) 0.8 Eos # (Auto) 0.0 Baso # (Auto) 0.0 Absolute Nucleated RBC 0.00 Nucleated RBC % 0.0 Sodium 135 Potassium 4.3 Chloride 95 L Carbon Dioxide 29 Anion Gap 11.0 BUN 15 Creatinine 0.9 Estimated GFR (MDRD) 84 L Glucose 115 H Calcium 9.8 Total Bilirubin 0.8 AST 24 ALT 23 Alkaline Phosphatase 48 Total Protein 8.0 Albumin 4.5 Globulin 3.5 Albumin/Globulin Ratio 1.3 Lipase 39 PD MEDICAL DECISION MAKING - ED course Complexity details: reviewed old records, reviewed results, re-evaluated patient, considered differential, d/w patient ED course: Patient is well-appearing, nontoxic. Afebrile. No significant laboratory abnormalities at this time. His abdominal pain seemed to resolve with Levsin. Possible that this is his IBS. He did not want to pursue any further imaging as he has already had multiple CT scans, ultrasounds and colonoscopy/endoscopies. We will trial him on Levsin for home. We will have him follow-up with his doctor for further care. Abdomen is soft, nontender nondistended on serial exam. Ambulating without difficulty. No evidence of cauda equina, epidural abscess. No evidence of fracture. No indication for emergent imaging of the back. Patient counseled regarding signs and symptoms for which I believe and urgent re-evaluation would be necessary. Patient with good understanding of and agreement to plan and is comfortable going home at this time This document was made in part using voice recognition software. While efforts are made to proofread this document, sound alike and grammatical errors may occur. Departure - Departure Disposition: 01 Home, Self Care Clinical Impression: Abdominal pain Qualifiers: Abdominal location: unspecified location Qualified Code(s): R10.9 - Unspecified abdominal pain Back pain Qualifiers: Back pain location: low back pain Chronicity: chronic Back pain laterality: bilateral Sciatica presence: without sciatica Qualified Code(s): M54.50 - Low back pain, unspecified; G89.29 - Other chronic pain Condition: Good Instructions: ED Abdominal Pain Unkn Cause Male Follow-Up: WILLIS ROTH ARNP [Primary Care Provider] - Within 1 week Prescriptions: Hyoscyamine Sulfate [Levsin-Sl] 0.125 mg SL Q6H PRN #30 tab PRN Reason: Abdominal Pain Comments: Please follow-up with your doctor for further care. The cause of your symptoms is unclear, but the Levsin did seem to help your symptoms. We will send this to [facility] in [place] for you. Return if you worsen. Discharge Date/Time: 11/17/21 13:30
== END 2021-11-17 13:30 | disposition home or self-care (01) ==
LOC: ED 12:25
DX: M54.50 Low back pain, unspecified (principal); R10.9 Unspecified abdominal pain; G89.29 Other chronic pain; F17.200 Nicotine dependence, unspecified, uncomplicated
CPT/HCPCS: 36415; 80053; 83690; 85025; 99283; 99284; A9270

== ENCOUNTER 2021-12-25 07:42 | Outpatient (CLI) | payer MEDICARE, MEDICAID ==
[2021-12-25 08:09] LABS: ALBUMIN 4.4 g/dL (3.2-5.5); ALBUMIN/GLOBULIN RATIO 1.4 (1.0-2.2); BILIRUBIN,TOTAL 0.8 mg/dL (0.2-1.0); CALCIUM 9.4 mg/dL (8.5-10.3); POTASSIUM 4.4 mmol/L (3.5-5.0); TOTAL PROTEIN 7.6 g/dL (6.7-8.2)
[2021-12-25] MEDS ORDERED: IOVERSOL 320 100 ML VIAL IVP ONE ×2 (08:12→08:36)
--- NOTE | 2021-12-25 09:11 | CT Report ---
PROCEDURE: ANGIO CHEST W/WO INDICATIONS: THORACIC AORTIC ANEURYSM CONTRAST: IV CONTRAST: Optiray 320 ml: 80 PO CONTRAST: *NO PO CONTRAST TECHNIQUE: After the administration of intravenous contrast, 2 mm axial images were acquired from the pulmonary apices to the posterior costophrenic angles during the arterial phase. In addition, 1 mm lung kernel and 5 mm soft tissue kernel reconstructions were performed. 3-dimensional coronal oblique maximum int ensity projection (MIP) reformats, 8 mm axial MIP, and 5 mm coronal and sagittal MPR reformats were t hen performed through the thorax. For radiation dose reduction, the following was used: automated exp osure control, adjustment of mA and/or kV according to patient size. COMPARISON: 10/08/2021 FINDINGS: Image quality: Excellent. Pulmonary arteries: Pulmonary arteries are normal in size, and demonstrate no intraluminal filling d efects to suggest central pulmonary embolism. Aorta: The thoracic aorta has a normal caliber throughout measuring 3.5 cm mid descending aorta and 2 .8 cm the mid descending aorta. There are scattered atherosclerotic calcifications. Great vessels hav e standard anatomy. Carotid artery has a plaque at the ostium causing 40% stenosis. The celiac trunk, SMA, and both renal arteries are Lungs and pleura: Lungs are clear. No pleural effusions or pneumothorax. Central and peripheral ai rways are patent. Mediastinum: Heart size is normal, without pericardial effusion. Coronary arteries have atheroscler otic calcifications. No mediastinal or hilar adenopathy. Thoracic aorta is normal in caliber and enh ancement. Esophagus is normal in caliber, without hiatal hernia. Bones and chest wall: No suspicious bony lesions. Severe multilevel degenerative disc changes in the lower thoracic and upper lumbar spine with grade 1 retrolisthesis of L1 on L2. Moderate degenerative changes of both femoral joints. No compression fracture. Ribs and thoracic spine appear intact throu ghout. No axillary or supraclavicular adenopathy. The thyroid is normal in size and there are no in cidental findings. Abdomen: Visualized upper abdominal solid organs appear normal in the early arterial phase of enhanc ement. 1.9 cm hepatic dome cyst is unchanged. IMPRESSION: 1. The thoracic aorta has a normal caliber with no aneurysm or dissection. 2. No pulmonary artery embolism. 3. Coronary artery calcifications. 4. Degenerative changes in the lower thoracic spine CLINICAL RECOMMENDATION STATEMENTS: In patients <35 years with an ITN detected on CT, MRI, or extrathyroidal ultrasound, the Committee re commends further evaluation with dedicated thyroid ultrasound if the nodule is "e1 cm and has no susp icious imaging features, and if the patient has normal life expectancy. In patients "e35 years with an ITN detected on CT, MRI, or extrathyroidal ultrasound, the Committee r ecommends further evaluation with dedicated thyroid ultrasound if the nodule is "e1.5 cm and has no s uspicious imaging features, and if the patient has normal life expectancy. (ACR, 2014) Reviewed by: Fausto Roach on 12/25/2021 9:10 AM PDT Approved by: Fausto Roach on 12/25/2021 9:10 AM PDT Station ID: [id number]
== END 2021-12-25 07:43 | disposition home or self-care (01) ==
LOC: DI 07:42
PROVIDERS: ATTEND Nurse Practitioner Family
DX: I25.10 Atherosclerotic heart disease of native coronary artery without angina pectoris (principal); M51.36 Other intervertebral disc degeneration, lumbar region; M51.34 Other intervertebral disc degeneration, thoracic region
CPT/HCPCS: 36415; 71275; 80053; Q9967

== ENCOUNTER 2022-06-27 08:00 | Outpatient (CLI) | payer MEDICARE, MEDICAID ==
--- NOTE | 2022-06-27 10:28 | XRAY Report ---
PROCEDURE: Chest 2 View X-Ray INDICATIONS: COUGH TECHNIQUE: 2 views of the chest were acquired. COMPARISON: None FINDINGS: Surgical changes and devices: None. Lungs and pleura: No pleural effusions or pneumothorax. Lungs are clear. Mediastinum: Mediastinal contours are normal. Heart size is normal. Bones and chest wall: No suspicious bony abnormalities. Soft tissues appear unremarkable. Degenera tive changes noted lower thoracic spine IMPRESSION: No acute cardiopulmonary findings Reviewed by: Álvaro Das MD on 06/27/2022 9:26 AM [facility] Approved by: Álvaro Das MD on 06/27/2022 9:26 AM [facility] Station ID: [id number]
== END 2022-06-27 23:59 | disposition home or self-care (01) ==
LOC: DI.S 08:00
PROVIDERS: ATTEND Physician Assistant
DX: R05.9 Cough, unspecified (principal); Z87.01 Personal history of pneumonia (recurrent)

== ENCOUNTER 2022-08-21 09:02 | Outpatient (CLI) | payer MEDICARE, MEDICAID ==
--- NOTE | 2022-08-21 09:02 | XRAY Report ---
PROCEDURE: Abdomen Acute INDICATIONS: ABDOMINAL PAIN TECHNIQUE: One view chest and two views of the abdomen were acquired. COMPARISON: CXR 06/27/2022. CT abdomen pelvis 11/28/2020. FINDINGS: Surgical changes and devices: None. Chest: Lungs are clear. Heart size is normal. No pleural effusions. No pneumoperitoneum. Abdomen: Scattered small bowel and colonic gas. No dilated loops of bowel identified. No suspicious calcifications. Visualized solid organ contours appear normal. Bones: No suspicious bony lesions. Heterotopic calcification near the right inferior pubic ramus si milar to prior CT. IMPRESSION: No acute cardiopulmonary abnormality. Nonobstructive bowel gas pattern. Reviewed by: Gary Maloney MD on 08/21/2022 9:00 AM PST Approved by: Gary Maloney MD on 08/21/2022 9:00 AM [facility] Station ID: [id number]
[2022-08-21 15:57] LABS: ALBUMIN/GLOBULIN RATIO 1.5 (1.0-2.2); BILIRUBIN,TOTAL 0.9 mg/dL (0.2-1.0); CALCIUM 9.2 mg/dL (8.5-10.3); CREATININE 0.8 mg/dL (0.6-1.2); POTASSIUM 3.9 mmol/L (3.5-5.0); TOTAL PROTEIN 6.6 g/dL (6.7-8.2)
== END 2022-08-21 09:03 | disposition home or self-care (01) ==
LOC: DI.S 09:02
PROVIDERS: ATTEND Registered Nurse
DX: R10.10 Upper abdominal pain, unspecified (principal); F10.10 Alcohol abuse, uncomplicated; Z80.0 Family history of malignant neoplasm of digestive organs
CPT/HCPCS: 36415; 80053; 80061; 82977; 83690; 83721

== ENCOUNTER 2023-11-23 12:02 | Emergency (ER) | payer MEDICAID, MEDICARE, OTHER ==
[2023-11-23 12:19] VITALS: O2SAT 100
[2023-11-23 12:33] LABS: BASOPHILS % (AUTO) 0.2 %; EOSINOPHILS % (AUTO) 0.2 %; HCT - HEMATOCRIT 39.3 % (42.0-52.0); LYMPHOCYTES # (AUTO) 0.9 10^3/uL (1.5-3.5); LYMPHOCYTES % (AUTO) 10.5 %; MEAN CORPUSCULAR HEMOGLOBIN 31.6 pg (27.0-31.0); MEAN CORPUSCULAR HGB CONC 33.1 g/dL (32.0-36.0); MEAN CORPUSCULAR VOLUME 95.4 fL (80.0-94.0); MEAN PLATELET VOLUME 9.4 fL (7.4-11.4); MONOCYTES # (AUTO) 0.9 10^3/uL (0.0-1.0); MONOCYTES % (AUTO) 10.4 %; NEUTROPHILS # (AUTO) 6.6 10^3/uL (1.5-6.6); NEUTROPHILS % (AUTO) 78.5 %; PLT - PLATELET COUNT 220 10^3/uL (130-450); RED BLOOD COUNT 4.12 10^6/uL (4.70-6.10); RED CELL DISTRIBUTION WIDTH 14.9 % (12.0-15.0); WHITE BLOOD COUNT 8.4 x10^3/uL (4.8-10.8)
[2023-11-23 12:46] LABS: ALBUMIN 4.3 g/dL (3.2-5.5); ALBUMIN/GLOBULIN RATIO 1.5 (1.0-2.2); BILIRUBIN,TOTAL 0.5 mg/dL (0.2-1.0); CALCIUM 9.9 mg/dL (8.5-10.3); CREATININE 0.8 mg/dL (0.6-1.3); POTASSIUM 4.2 mmol/L (3.5-4.5); TOTAL PROTEIN 7.1 g/dL (6.4-8.9)
[2023-11-23 12:56] LABS: BILIRUBIN,URINE NEGATIVE (NEGATIVE); GLUCOSE, URINE (UA) NEGATIVE (NEGATIVE); KETONES,URINE (UA) NEGATIVE (NEGATIVE); LEUKOCYTE ESTERASE, URINE NEGATIVE (NEGATIVE); NITRITE,URINE NEGATIVE (NEGATIVE); OCCULT BLOOD,URINE NEGATIVE (NEGATIVE); PROTEIN,URINE NEGATIVE (NEGATIVE); UROBILINOGEN,URINE 0.2 (NORMAL) E.U./dL (NORMAL)
[2023-11-23 12:57] LABS: CLARITY,URINE CLEAR (CLEAR)
--- NOTE | 2023-11-23 13:46 | ED Physician Documentation ---
PD HPI ABD PAIN - Stated complaint Stated Complaint: STOMACH PX/GI - Chief complaint Chief Complaint: Abd Pain - History obtained from History obtained from: Patient - Additional information Additional information: Patient is a 68-year-old male with a history of heavy EtOH use presenting for evaluation of epigastric abdominal pain that has been ongoing for months and seems to be worse in the mornings. He also reports that sometimes the pain radiates to the lower abdomen. He denies any nausea or vomiting. He reports he does not usually eat breakfast but has been eating dinner okay. He reports regular alcohol use with a 10-12 beers a day. Has not had any alcohol today. Has had prior upper and lower endoscopies and denies any abnormal findings in the past. Did have a bowel movement today but does report having to strain for bowel movements regularly. No chest pain, shortness of air. Review of Systems Constitutional: denies: Fever Cardiac: denies: Chest pain / pressure Respiratory: denies: Dyspnea GI: reports: Abdominal Pain. denies: Vomiting, Diarrhea, Bloody / black stool : denies: Dysuria PD PAST MEDICAL HISTORY - Past Medical History Past Medical History: Yes Cardiovascular: Hypertension Respiratory: None Neuro: None Endocrine/Autoimmune: None GI: GERD, Other : None HEENT: None Psych: Depression Musculoskeletal: Osteoarthritis, Chronic back pain Derm: None - Past Surgical History Past Surgical History: Yes General: Hiatal hernia repair, Colonoscopy, EGD HEENT: Tonsil/Adenoidectomy - Present Medications Home Medications: Ambulatory Orders Medication Instructions Recorded Confirmed Nortriptyline HCl 50 mg PO DAILY 07/25/18 11/23/23 Losartan/Hydrochlorothiazide 1 tab PO DAILY 11/28/20 11/23/23 [Losartan-Hctz 100-12.5 mg Tab] Hyoscyamine Sulfate [Levsin-Sl] 0.125 mg SL Q6H PRN #30 tab 11/17/21 11/23/23 ALPRAZolam [Alprazolam] 0.5 mg PO DAILY PRN 11/23/23 11/23/23 - Allergies Allergies/Adverse Reactions: Allergies Allergy/AdvReac Type Severity Reaction Status Date / Time tetracycline [Tetracycline] Allergy Mild Rash Verified 11/23/23 12:09 Sulfa (Sulfonamide Allergy Unknown unknown Verified 11/23/23 12:09 Antibiotics) - Social History Does the pt smoke?: Yes Smoking Status: Former smoker Does the pt drink ETOH?: Yes ETOH Use: Beer Does the pt have substance abuse?: Yes Substance Use and Type: Marijuana - Immunizations Immunizations are current?: No Immunizations: Other immun not current - POLST Patient has POLST: No PD ED PE NORMAL - General General: Alert and oriented X 3, No acute distress, Well developed/nourished - HEENT HEENT: Atraumatic, Moist mucous membranes, Pharynx benign - Neck Neck: Supple, no meningeal sign - Cardiac Cardiac: RRR, Strong equal pulses - Respiratory Respiratory: No respiratory distress, Clear bilaterally - Abdomen Abdomen: Normal bowel sounds, Soft, Non distended, Other (Mild lower abdominal tenderness, no mass, no rebound or guarding) - Derm Derm: Warm and dry - Neuro Neuro: Normal speech Results - Vitals Vitals: Vital Signs - 24 hr 11/23/23 12:09 Temperature 36.8 C Heart Rate 111 H Respiratory 18 Rate Blood Pressure 152/87 H O2 Saturation 100 Oxygen O2 Source Room air - Labs Labs: Laboratory Tests 11/23/23 11/23/23 11/23/23 12:07 12:26 12:26 WBC 8.4 RBC 4.12 L Hgb 13.0 L Hct 39.3 L MCV 95.4 H MCH 31.6 H MCHC 33.1 RDW 14.9 Plt Count 220 MPV 9.4 Neut # (Auto) 6.6 Lymph # (Auto) 0.9 L [place] # (Auto) 0.9 Eos # (Auto) 0.0 Baso # (Auto) 0.0 Absolute Nucleated RBC 0.00 Nucleated RBC % 0.0 Sodium 134 L Potassium 4.2 Chloride 99 L Carbon Dioxide 30 Anion Gap 5.0 L BUN 15 Creatinine 0.8 Estimated GFR (MDRD) 96 Glucose 98 Calcium 9.9 Total Bilirubin 0.5 AST 19 ALT 16 Alkaline Phosphatase 45 Total Protein 7.1 Albumin 4.3 Globulin 2.8 Albumin/Globulin Ratio 1.5 Lipase 38 Urine Color YELLOW Urine Clarity CLEAR Urine pH 6.0 Ur Specific [place] <=1.005 Urine Protein NEGATIVE Urine Glucose (UA) NEGATIVE Urine Ketones NEGATIVE Urine Occult Blood NEGATIVE Urine Nitrite NEGATIVE Urine Bilirubin NEGATIVE Urine Urobilinogen 0.2 (NORMAL) Ur Leukocyte Esterase NEGATIVE Ur Microscopic Review NOT INDICATED Urine Culture Comments NOT INDICATED PD Medical Decision Making - ED course Complexity details: reviewed results, re-evaluated patient, d/w patient ED course: Patient is a 68-year-old male with vague abdominal pain for the last several months, worse in the morning. Does have a history of significant EtOH use. CBC, chemistries were obtained and reviewed and without significant findings. Mild tenderness on exam. But overall abdominal exam is benign. CT scan was obtained and without any acute findings. Patient feels reassured but understands importance of close follow-up with primary care doctor as he may need further testing. Departure - Departure Disposition: 01 Home, Self Care Clinical Impression: Generalized abdominal pain Condition: Stable Instructions: ED Abdominal Pain Unkn Cause Male Comments: Your testing today does not show any significant abnormalities and your CT scan also does not show any significant findings. I would recommend close follow-up with your primary care doctor as you may need further testing or referral to gastroenterology to discuss your symptoms. Return to the ER with any worsening. Forms: PCP List
[2023-11-23] MEDS ORDERED: iohexoL-300 100 ML VIAL ONE (13:53)
[2023-11-23] MEDS: iohexoL-300 100 ML VIAL IVP ONE (14:10)
--- NOTE | 2023-11-23 14:26 | CT Report ---
PROCEDURE: Abdomen/Pelvis W INDICATIONS: lower abd pain CONTRAST: Omni 300 100ml TECHNIQUE: After the administration of intravenous contrast, a CT scan of the abdomen and pelvis was performed. Images were recorded and evaluated at appropriate window settings. Reformats: coronal and sagittal. F or radiation dose reduction, the following was used: automated exposure control, adjustment of mA and /or kV according to patient size. COMPARISON: CT of the abdomen and pelvis dated 11/28/2020. FINDINGS: Image quality: Diagnostic. Lower chest: Platelike atelectasis is present in the dependent lung bases bilaterally. Liver: No solid mass. Low-density cystic lesions are redemonstrated within the liver. Gallbladder and biliary tree: The gallbladder is unremarkable. No intrahepatic biliary ductal dilatat ion. Spleen: No splenomegaly. Pancreas: No pancreatic ductal dilation. Adrenals: No adrenal nodule. Kidneys and ureters: No hydronephrosis. No renal cystic lesion which requires follow up. No solid mas s. Stomach, bowel and peritoneum: No bowel distension. No pathologic free fluid. Appendix is not visuali zed; however there are no suspicious findings to suggest acute appendicitis such as right lower quadr ant free fluid or fat stranding. Lymph nodes: No central or retroperitoneal adenopathy. Vessels: No infrarenal aortic aneurysm. Scattered atheromatous calcifications are present throughout the abdominal aorta. PELVIS Reproductive organs: Unremarkable. Bladder: No abnormal wall thickening, accounting for underdistention. Pelvic lymph nodes: No pelvic adenopathy by size criteria. Bones: No aggressive osseous abnormality. Other: No significant ventral or inguinal hernia. IMPRESSION: 1. No acute intra-abdominal findings. The appendix is not visualized; however there are no ancillary findings to suggest acute appendicitis. Reviewed by: Leigha Hernandez MD on 11/23/2023 2:25 PM PDT Approved by: Leigha Hernandez MD on 11/23/2023 2:25 PM PDT Station ID: [id number]
[2023-11-23 15:03] VITALS: BP 139/92
== END 2023-11-23 15:01 | disposition home or self-care (01) ==
LOC: ED 12:02
DX: R10.84 Generalized abdominal pain (principal); I10 Essential (primary) hypertension; Z79.899 Other long term (current) drug therapy; Z87.891 Personal history of nicotine dependence
CPT/HCPCS: 36415; 74177; 80053; 81003; 83690; 85025; 99284; Q9967; 81001; 87086

== ENCOUNTER 2024-01-26 10:03 | Outpatient (CLI) | payer OTHER | END 2024-01-26 10:04 | disposition home or self-care (01) | LOC: LAB 10:03 | PROVIDERS: ATTEND Urology | DX: Z12.5 Encounter for screening for malignant neoplasm of prostate (principal) | CPT/HCPCS: 36415; 84153 ==